=== PATIENT | female | born 1945 | race Caucasian/White ===

== ENCOUNTER 2016-11-22 08:00 | Outpatient (CLI) | payer MEDICARE, BC | END 2016-11-22 08:01 | DX: E78.5 Hyperlipidemia, unspecified (principal); R73.01 Impaired fasting glucose; E89.0 Postprocedural hypothyroidism ==

== ENCOUNTER 2017-02-17 07:09 | Outpatient (CLI) | payer MEDICARE, BC | END 2017-02-17 07:10 | disposition home or self-care (01) | DX: E89.0 Postprocedural hypothyroidism (principal) ==

== ENCOUNTER 2022-01-09 13:08 | Outpatient (CLI) | payer MEDICARE, BC | END 2022-01-09 13:09 | disposition short-term general hospital (02) | LOC: EMS 13:08 | DX: S09.90XA Unspecified injury of head, initial encounter (principal); M54.2 Cervicalgia; R41.0 Disorientation, unspecified; R26.81 Unsteadiness on feet; W17.81XA Fall down embankment (hill), initial encounter; Y92.414 Local residential or business street as the place of occurrence of the external cause | CPT/HCPCS: A0425; A0429 ==

== ENCOUNTER 2023-05-12 09:20 | Outpatient (CLI) | payer MEDICARE, BC ==
[2023-05-12 12:08] LABS: BASOPHILS % (AUTO) 0.7 %; EOSINOPHILS # (AUTO) 0.1 10^3/uL (0.0-0.7); EOSINOPHILS % (AUTO) 1.6 %; HCT - HEMATOCRIT 40.1 % (37.0-47.0); HGB - HEMOGLOBIN 12.8 g/dL (12.0-16.0); LYMPHOCYTES # (AUTO) 1.3 10^3/uL (1.5-3.5); LYMPHOCYTES % (AUTO) 29.1 %; MEAN CORPUSCULAR HEMOGLOBIN 29.8 pg (27.0-31.0); MEAN CORPUSCULAR HGB CONC 31.9 g/dL (32.0-36.0); MEAN CORPUSCULAR VOLUME 93.5 fL (81.0-99.0); MEAN PLATELET VOLUME 14.8 fL (7.9-10.8); MONOCYTES # (AUTO) 0.5 10^3/uL (0.0-1.0); MONOCYTES % (AUTO) 10.6 %; NEUTROPHILS # (AUTO) 2.5 10^3/uL (1.5-6.6); NEUTROPHILS % (AUTO) 57.8 %; PLT - PLATELET COUNT 133 10^3/uL (130-450); RED BLOOD COUNT 4.29 10^6/uL (4.20-5.40); RED CELL DISTRIBUTION WIDTH 12.5 % (12.0-15.0); WHITE BLOOD COUNT 4.4 x10^3/uL (4.8-10.8)
[2023-05-12 12:36] LABS: ALBUMIN/GLOBULIN RATIO 1.5 (1.0-2.2); ALKALINE PHOSPHATASE 68 IU/L (42-121); ALT ALANINE AMINOTRANSFERASE 16 IU/L (10-60); AST ASPARTATE AMINOTRANSFERASE 20 IU/L (10-42); BILIRUBIN,TOTAL 0.5 mg/dL (0.2-1.0); BUN - BLOOD UREA NITROGEN 16 mg/dL (6-20); CALCIUM 9.9 mg/dL (8.5-10.3); CARBON DIOXIDE - CO2 28 mmol/L (21-32); CHLORIDE 104 mmol/L (101-111); CHOL/HDL RATIO 3.7 (<4.4); CHOLESTEROL 144 mg/dL; CREATININE 0.6 mg/dL (0.6-1.3); GFR - MDRD 97 (>89); GLUCOSE 83 mg/dL (74-104); HDL CHOLESTEROL 39 mg/dL; LDL CHOLESTEROL,CALCULATED 79 mg/dL; POTASSIUM 3.5 mmol/L (3.5-4.5); SODIUM 142 mmol/L (135-145); TOTAL PROTEIN 6.6 g/dL (6.4-8.9); TRIGLYCERIDES 129 mg/dL (48-352); VLDL CHOLESTEROL 26 mg/dL
== END 2023-05-12 09:21 | disposition home or self-care (01) ==
LOC: LAB.N 09:20
PROVIDERS: ATTEND Nurse Practitioner
DX: E78.5 Hyperlipidemia, unspecified (principal); R53.83 Other fatigue; G31.09 Other frontotemporal neurocognitive disorder
CPT/HCPCS: 36415; 80053; 80061; 82607; 83721; 85025

== ENCOUNTER 2023-05-26 08:54 | Outpatient (CLI) | payer MEDICARE, BC | END 2023-05-26 23:59 | disposition short-term general hospital (02) | LOC: EMS 08:54 | DX: R07.9 Chest pain, unspecified (principal); R10.13 Epigastric pain; M54.50 Low back pain, unspecified; R00.1 Bradycardia, unspecified | CPT/HCPCS: A0425; A0429 ==

== ENCOUNTER 2023-07-12 12:13 | Outpatient (CLI) | payer MEDICARE, BC | END 2023-07-12 23:59 | disposition critical access hospital (66) | LOC: EMS 12:13 | DX: R41.82 Altered mental status, unspecified (principal); R53.1 Weakness; R63.8 Other symptoms and signs concerning food and fluid intake; N93.9 Abnormal uterine and vaginal bleeding, unspecified; N39.0 Urinary tract infection, site not specified | CPT/HCPCS: A0425; A0429 ==

== ENCOUNTER 2023-07-12 12:44 | Inpatient (IN) | payer MEDICARE, BC ==
[2023-07-12] MEDS ORDERED: SODIUM CHLORIDE 0.9% 1,000 ML IV STA (12:56)
--- NOTE | 2023-07-12 13:03 | ED Physician Documentation ---
History of Present Illness - Stated complaint Stated Complaint: FTT - Additonal information Additional information: History provided by EMS given patient's advanced dementia. 78-year-old female is brought to the emergency department for evaluation of reported shortness of air when ambulating this morning and concerns of vaginal bleeding. The patient is currently receiving cephalexin for a urinary tract infection which grew E. coli with last visit This patient has dementia and resides at home with 24-hour caregivers. She was seen in this emergency department on 07/04/2023 for concerns of constipation and abdominal pain. It sounded at the time of that visit that the patient had begun as of late to refuse most of her medications and bowel regimen though she had reported pain when having bowel movements. Caregivers had reported increasing difficulty managing her at home. Her guardian was hoping to get placement for the patient in a memory care unit but they had not yet visited her PCP to talk about this. On arrival to the emergency department the patient appears alert and is requesting her cell phone. She appears to be in no apparent distress. EMS described sinus rhythm, normal blood sugar and normal blood pressures. No fevers. Review of Systems Unable to obtain: Dementia, Other (As per EMS) PD PAST MEDICAL HISTORY - Past Medical History Cardiovascular: Hypertension Neuro: Dementia Endocrine/Autoimmune: HyPOthyroidism - Past Surgical History Past Surgical History: Yes - Present Medications Home Medications: Ambulatory Orders Medication Instructions Recorded Confirmed Bisacodyl Supp [Dulcolax Supp] 10 mg [place] DAILY PRN #20 supp 07/04/23 Levothyroxine [Synthroid] 100 mcg PO QDAC 07/04/23 07/04/23 Melatonin 3 mg PO DAILY 07/04/23 07/04/23 Senna [Senokot] 8.6 mg PO DAILY 07/04/23 07/04/23 Sertraline [Zoloft] 25 mg PO DAILY 07/04/23 07/04/23 traZODone [Desyrel] 50 mg PO HS 07/04/23 07/04/23 Potassium Chloride [Klor-Con] 20 meq PO DAILY 5 Days #5 packet 07/06/23 cephALEXin [Keflex] 500 mg PO BID #14 cap 07/06/23 - Allergies Allergies/Adverse Reactions: Allergies Allergy/AdvReac Type Severity Reaction Status Date / Time No Known Drug Allergies Allergy Verified 07/12/23 13:03 - Social History Does the pt smoke?: No Smoking Status: Never smoker Does the pt drink ETOH?: No Does the pt have substance abuse?: No - Immunizations Immunizations are current?: Yes PD ED PE EXPANDED - General General: Alert, No acute distress - Cardiac Cardiac: Regular Rate, Radial strong equal, Pedal strong equal, Cap refill < 2 sec - Respiratory Respiratory: Clear to ausultation haritha. No: Distress, Labored - Abdomen Abdomen: Normal Bowel sounds. No: Tender to palpation - Female Female : Other (I Jayne RN at bedside. Female exam reveals dark brandon urine in the diaper but no obvious bleeding. She has dark green stool which was sent for guaiac check. A very brief vaginal exam revealed no obvious vaginal bleeding) - Rectal Rectal: Farm Machine Operator present, Other (Dark green soft stool in vault.) - Derm Derm: Normal color, Warm and dry - Extremities Extremities: Normal. No: Deformity, Tenderness - Neuro Neuro: Confused, CNII-XII intact (grossly intact) - GCS Eye Opening: Spontaneous Motor: Localizes to Pain Verbal: Confused Total: 13 Results - Vitals Vitals: Vital Signs - 24 hr 07/12/23 07/12/23 07/12/23 13:00 15:02 18:05 Temperature 36.0 C L 36.5 C Heart Rate 94 72 80 Respiratory 20 15 17 Rate Blood Pressure 117/82 H 118/57 L 125/52 L O2 Saturation 99 98 100 07/12/23 19:20 Temperature Heart Rate 74 Respiratory 18 Rate Blood Pressure 118/64 O2 Saturation 100 Oxygen O2 Source Room air - Labs Labs: Microbiology 07/12/23 13:09 Occult Blood - Final Stool Laboratory Tests 07/12/23 07/12/23 07/12/23 13:09 13:53 13:53 WBC 12.4 H RBC 4.39 Hgb 13.4 Hct 41.8 MCV 95.2 MCH 30.5 MCHC 32.1 RDW 16.5 H Plt Count 231 MPV 13.4 H Neut # (Auto) 10.7 H Lymph # (Auto) 0.6 L Pitt # (Auto) 0.9 Eos # (Auto) 0.0 Baso # (Auto) 0.0 Absolute Nucleated RBC 0.00 Nucleated RBC % 0.0 Sodium 157 H* Potassium 2.7 L Chloride 115 H Carbon Dioxide 26 Anion Gap 16.0 H BUN 68 H Creatinine 1.0 Estimated GFR (MDRD) 54 L Glucose 146 H Calcium 10.0 Total Bilirubin 0.6 AST 20 ALT 16 Alkaline Phosphatase 66 Total Protein 6.8 Albumin 4.0 Globulin 2.8 Albumin/Globulin Ratio 1.4 Lipase 20 Urine Color DARK YELLOW Urine Clarity CLEAR Urine pH 5.5 Ur Specific [place] 1.020 Urine Protein 30 H Urine Glucose (UA) NEGATIVE Urine Ketones TRACE Urine Occult Blood TRACE-INTA Urine Nitrite POSITIVE H Urine Bilirubin NEGATIVE Urine Urobilinogen 0.2 (NORMAL) Ur Leukocyte Esterase SMALL H Urine RBC 0-5 Urine WBC >25 H Urine WBC Clumps PRESENT Ur Squamous Epith Cells NONE SEEN Urine Bacteria Moderate H Ur Microscopic Review INDICATED Urine Culture Comments INDICATED 07/12/23 17:05 WBC RBC Hgb Hct MCV MCH MCHC RDW Plt Count MPV Neut # (Auto) Lymph # (Auto) Pitt # (Auto) Eos # (Auto) Baso # (Auto) Absolute Nucleated RBC Nucleated RBC % Sodium 157 H* Potassium 3.2 L Chloride 118 H Carbon Dioxide 25 Anion Gap 14.0 H BUN 63 H Creatinine 0.9 Estimated GFR (MDRD) 61 L Glucose 120 H Calcium 9.2 Total Bilirubin AST ALT Alkaline Phosphatase Total Protein Albumin Globulin Albumin/Globulin Ratio Lipase Urine Color Urine Clarity Urine pH Ur Specific [place] Urine Protein Urine Glucose (UA) Urine Ketones Urine Occult Blood Urine Nitrite Urine Bilirubin Urine Urobilinogen Ur Leukocyte Esterase Urine RBC Urine WBC Urine WBC Clumps Ur Squamous Epith Cells Urine Bacteria Ur Microscopic Review Urine Culture Comments PD Medical Decision Making - ED course Complexity details: reviewed results, re-evaluated patient, other ([place] Court appointed legal guardian) ED course: 78-year-old female who has a history of dementia is brought to back to the emergency department for evaluation of increasing weakness, refusal to eat or take medications and concerns that she has vaginal bleeding. Was seen several days ago for constipation and lower abdominal pain. At that time found to have a urinary tract infection E. coli pansensitive. Was started on Keflex. Since discharge she has had increasing refusal of foods and medications. Her caregivers feel that she is more altered and nonsensical in her speech. On presentation to the emergency department she is alert. She is confused at baseline but has no obvious focal deficits. Her vital signs show no fevers, tachycardia or hypotension. The exam at the bedside revealed a diaper with dark brandon urine. There was no evidence of vaginal bleeding. She did have some melenic appearing stool which was ultimately guaiac positive. We did obtain CBC, electrolytes and a urinalysis. Her UA is consistent with acute cystitis nitrite positive greater than 25 WBCs and moderate bacteria. For this she was administered a gram of ceftriaxone IV. CBC showed mild leukocytosis white count of 12,000. Normal hemoglobin. Electrolytes show f airly elevated sodium of 157 and potassium of 2.7. BUN is 68 and creatinine is 1. Initially the patient was administered a liter of IV fluids. However with a sodium of 157 we instituted a saline infusion half-normal at 90 mL/h. Her BMP will be rechecked. Guaiac positive melena likely indicates an upper GI bleed. IV Protonix was administered. Given hemodynamic stability I do not feel that an EGD is an urgent need at this time. At this time the patient does warrant admission/observation admission to the hospital for management of her dehydration and electrolyte abnormalities. No bed is available. Subsequently I reached out to [facility] her court appointed legal guardian who can be reached at [phone]. She indicated to me that she wished for the patient to be placed in a memory care facility. I discussed with her that the emergency department did not have the capability of admitting patients to memory care facilities and this should be arranged through her primary doctors. She told me she felt it was not safe for the patient to be discharged back home. However I explained to her that she does have 24-hour caregiver support in place which would in fact make her safe for discharge. 1919: I have spoken with nighttime telehospitalist Dr. Gracia and given the clinical history. He will admit the patient to the hospital for further management of her dehydration, acute cystitis and dementia Departure - Departure Disposition: 66 [facility] DC/Xfer Clinical Impression: Dehydration, Hypernatremia, Hypokalemia Acute cystitis Qualifiers: Hematuria presence: without hematuria Qualified Code(s): N30.00 - Acute cyst itis without hematuria GIB (gastrointestinal bleeding) Qualifiers: GI bleed type/associated pathology: unspecified gastrointestinal hemorrhage type Qualified Code(s): K92.2 - Gastrointestinal hemorrhage, unspecified Dementia Qualifiers: Dementia type: unspecified type Dementia severity: severe Dementia behavioral or psychological symptom: unspecified whether behavioral, psychotic, or mood disturbance or anxiety Qualified Code(s): F03.C0 - Unspecified dementia, severe, without behavioral disturbance, psychotic disturbance, mood disturbance, and anxiety
[2023-07-12 13:38] LABS: GLUCOSE, URINE (UA) NEGATIVE (NEGATIVE); KETONES,URINE (UA) TRACE mg/dL (NEGATIVE); LEUKOCYTE ESTERASE, URINE SMALL (NEGATIVE); NITRITE,URINE POSITIVE (NEGATIVE); OCCULT BLOOD,URINE TRACE-INTA (NEGATIVE); PH,URINE 5.5 PH (5.0-7.5); PROTEIN,URINE 30 mg/dL (NEGATIVE); UROBILINOGEN,URINE 0.2 (NORMAL) E.U./dL (NORMAL)
--- NOTE | 2023-07-12 13:41 | XRAY Report ---
PROCEDURE: Chest 1 View X-Ray INDICATIONS: chest pain TECHNIQUE: One view of the chest was acquired. COMPARISON: None. FINDINGS: Surgical changes and devices: None. Lungs and pleura: No pleural effusions or pneumothorax. Lungs are clear. Mediastinum: Mediastinal contours appear normal. Heart size is normal. Bones and chest wall: No suspicious bony lesions. Overlying soft tissues appear unremarkable. IMPRESSION: No acute cardiopulmonary process. Reviewed by: Dk Ling on 07/12/2023 1:40 PM PDT Approved by: Dk Ling on 07/12/2023 1:40 PM PDT Station ID: [id number]
[2023-07-12 13:44] LABS: CLARITY,URINE CLEAR (CLEAR)
[2023-07-12 13:52] LABS: BILIRUBIN,URINE NEGATIVE (NEGATIVE); ICTOTEST,URINE NEGATIVE
[2023-07-12 14:08] LABS: WBC CLUMPS,URINE PRESENT; WBC,URINE >25 /HPF (0-5)
[2023-07-12 14:09] LABS: BACTERIA,URINE Moderate /HPF (None Seen); RBC,URINE 0-5 /HPF (0-5); SQUAMOUS EPITHELIAL CELL,UR NONE SEEN (<= Few)
[2023-07-12 14:24] LABS: BASOPHILS % (AUTO) 0.3 %; HCT - HEMATOCRIT 41.8 % (37.0-47.0); HGB - HEMOGLOBIN 13.4 g/dL (12.0-16.0); LYMPHOCYTES # (AUTO) 0.6 10^3/uL (1.5-3.5); MEAN CORPUSCULAR HEMOGLOBIN 30.5 pg (27.0-31.0); MEAN CORPUSCULAR HGB CONC 32.1 g/dL (32.0-36.0); MEAN CORPUSCULAR VOLUME 95.2 fL (81.0-99.0); MEAN PLATELET VOLUME 13.4 fL (7.9-10.8); MONOCYTES # (AUTO) 0.9 10^3/uL (0.0-1.0); MONOCYTES % (AUTO) 7.1 %; NEUTROPHILS # (AUTO) 10.7 10^3/uL (1.5-6.6); NEUTROPHILS % (AUTO) 86.1 %; PLT - PLATELET COUNT 231 10^3/uL (130-450); RED BLOOD COUNT 4.39 10^6/uL (4.20-5.40); RED CELL DISTRIBUTION WIDTH 16.5 % (12.0-15.0); WHITE BLOOD COUNT 12.4 x10^3/uL (4.8-10.8)
[2023-07-12 14:43] LABS: ALBUMIN/GLOBULIN RATIO 1.4 (1.0-2.2); BILIRUBIN,TOTAL 0.6 mg/dL (0.2-1.0); POTASSIUM 2.7 mmol/L (3.5-4.5); TOTAL PROTEIN 6.8 g/dL (6.4-8.9)
[2023-07-12] MEDS: SODIUM CHLORIDE 0.45% 1,000 ML IV SCH ×2 (15:47→23:54)
[2023-07-12] MEDS ORDERED: cefTRIAXone 1 GM VIAL IVP STA (16:34)
[2023-07-12] MEDS: POTASSIUM CHLORIDE 20 MEQ/15 ML UDC PO STA ×2 (16:35→16:47)
[2023-07-12 17:39] LABS: CALCIUM 9.2 mg/dL (8.5-10.3); CREATININE 0.9 mg/dL (0.6-1.3); POTASSIUM 3.2 mmol/L (3.5-4.5)
[2023-07-12] MEDS: POTASSIUM CHLOR 10 MEQ/100 ML 10 MEQ/100 ML BAG IV SCH ×4 (18:24→23:00)
[2023-07-12] MEDS ORDERED: PANTOPRAZOLE 40 MG VIAL IVP STA (19:22)
[2023-07-12] MEDS ORDERED: ONDANSETRON 4 MG/2 ML VIAL IVP PRN (19:24)
--- NOTE | 2023-07-12 20:05 | HISTORY & PHYSICAL EXAMINATION ---
Chief Complaint - Chief Complaint Chief Complaint: Not eating or drinking History of Present Illness - History of Present Illness HPI Comment/Other: 78 y old female with PMH dementia, hypothyroidism BIBA due to not eating or drinking for last few days. Most is history is from the caregiver. As per caregiver, pt was not taking her meds or eating or drinking for last few days. They noticed blood per rectum while cleaning her yesterday and gain this mo rning.. On presentaion, pt was afberile Labs showed WBC 12.3, NA 159, hypokalemia, UTI, As per Isabel Ornelas, pt was guiaiac positive In ER, pt was given Normal saline, IV protonix and abx Pt is admitted due to GI bleeding, hypernatremia, dehydartion, hypokalemia and uti History - Past Medical History Cardiovascular: reports: Hypertension Neuro: reports: Dementia Endocrine/Autoimmune: reports: HyPOthyroidism MRSA Hx?: No Meds/Allgy - Home Medications Home Medications: Ambulatory Orders Medication Instructions Recorded Confirmed Bisacodyl Supp [Dulcolax Supp] 10 mg [place] DAILY PRN #20 supp 07/04/23 Levothyroxine [Synthroid] 100 mcg PO QDAC 07/04/23 07/04/23 Melatonin 3 mg PO DAILY 07/04/23 07/04/23 Senna [Senokot] 8.6 mg PO DAILY 07/04/23 07/04/23 Sertraline [Zoloft] 25 mg PO DAILY 07/04/23 07/04/23 traZODone [Desyrel] 50 mg PO HS 07/04/23 07/04/23 Potassium Chloride [Klor-Con] 20 meq PO DAILY 5 Days #5 packet 07/06/23 cephALEXin [Keflex] 500 mg PO BID #14 cap 07/06/23 - Allergies Allergies/Adverse Reactions: Allergies Allergy/AdvReac Type Severity Reaction Status Date / Time No Known Drug Allergies Allergy Verified 07/12/23 13:03 Review of Systems - Other Findings Other Findings: unable to obtain due to dementia Exam - Vital Signs Vital Signs: Vital Signs x48h Temp Pulse Resp BP Pulse Ox 07/12/23 19:20 74 18 118/64 100 07/12/23 18:05 80 17 125/52 L 100 07/12/23 15:02 36.5 C 72 15 118/57 L 98 07/12/23 13:00 36.0 C L 94 20 117/82 H 99 - Physical Exam General Appearance: positive: Lethargic (sleepy), Other ENT: positive: ENT inspection nml Neck: positive: Nml inspection Respiratory: positive: Breath sounds nml Cardiovascular: positive: Regular rate & rhythm Abdomen: positive: Non-tender, Nml bowel sounds Skin: positive: No rash Neurologic/Psychiatric: positive: Disoriented to place, Disoriented to time Conclusion/Plan - Lab Results Fish Bones: 07/12/23 13:53 07/12/23 17:05 - Other Other Results/Comments: A: GI bleeding Hypernatremia Dehydration, Hypokalemia UTI Dementia Plan: Admit in ICU NPO Start protonix gtt Monitor H/H q6h. Transfuse PRBC if Hb less than 7.0 As per Isabel Ornelas, she will consult general surgery for EGD and colonoscopy Start D5W @ 75 cc/h monitor serum sodium q6h neuro checks q4h correction of sodium should not exceed more than 0.5 meq per hour Replace k and monitor Follow cx Start iv rocephin Supportive care DVT prophylaxic: SCD Full code pt is admitted as inpatient as more than 2 midnight stay is expected
[2023-07-12] MEDS ORDERED: PANTOPRAZOLE 40 MG VIAL ONE (20:31)
[2023-07-12] MEDS: DEXTROSE 5% 1,000 ML IV SCH (21:35)
[2023-07-12] MEDS: PANTOPRAZOLE 80 MG in SODIUM CHLORIDE 0.9% 100ML 100 ML IV SCH (21:42)
[2023-07-12 23:25] LABS: BASOPHILS % (AUTO) 0.2 %; HCT - HEMATOCRIT 38.5 % (37.0-47.0); HGB - HEMOGLOBIN 11.9 g/dL (12.0-16.0); LYMPHOCYTES % (AUTO) 7.2 %; MEAN CORPUSCULAR HEMOGLOBIN 29.9 pg (27.0-31.0); MEAN CORPUSCULAR HGB CONC 30.9 g/dL (32.0-36.0); MEAN CORPUSCULAR VOLUME 96.7 fL (81.0-99.0); MEAN PLATELET VOLUME 12.7 fL (7.9-10.8); MONOCYTES # (AUTO) 1.3 10^3/uL (0.0-1.0); MONOCYTES % (AUTO) 9.7 %; NEUTROPHILS # (AUTO) 10.6 10^3/uL (1.5-6.6); NEUTROPHILS % (AUTO) 80.3 %; PLT - PLATELET COUNT 193 10^3/uL (130-450); RED BLOOD COUNT 3.98 10^6/uL (4.20-5.40); RED CELL DISTRIBUTION WIDTH 16.7 % (12.0-15.0); WHITE BLOOD COUNT 13.3 x10^3/uL (4.8-10.8)
[2023-07-12] MEDS: SODIUM CHLORIDE FLUSH 0.9% 10 ML SYRINGE IVP SCH (23:53)
[2023-07-13 05:07] LABS: BASOPHILS % (AUTO) 0.3 %; EOSINOPHILS % (AUTO) 0.2 %; HGB - HEMOGLOBIN 10.9 g/dL (12.0-16.0); LYMPHOCYTES # (AUTO) 1.1 10^3/uL (1.5-3.5); LYMPHOCYTES % (AUTO) 10.3 %; MEAN CORPUSCULAR HEMOGLOBIN 30.6 pg (27.0-31.0); MEAN CORPUSCULAR HGB CONC 32.1 g/dL (32.0-36.0); MEAN CORPUSCULAR VOLUME 95.5 fL (81.0-99.0); MEAN PLATELET VOLUME 13.6 fL (7.9-10.8); MONOCYTES % (AUTO) 9.3 %; NEUTROPHILS # (AUTO) 8.2 10^3/uL (1.5-6.6); NEUTROPHILS % (AUTO) 77.8 %; PLT - PLATELET COUNT 171 10^3/uL (130-450); RED BLOOD COUNT 3.56 10^6/uL (4.20-5.40); RED CELL DISTRIBUTION WIDTH 16.7 % (12.0-15.0); WHITE BLOOD COUNT 10.6 x10^3/uL (4.8-10.8)
[2023-07-13 05:15] LABS: CALCIUM, IONIZED 1.11 mmol/L (1.15-1.33); VBG PH 7.465 (7.31-7.41)
[2023-07-13 05:24] LABS: CALCIUM 9.1 mg/dL (8.5-10.3); CREATININE 0.8 mg/dL (0.6-1.3); MAGNESIUM 2.1 mg/dL (1.7-2.3); PHOSPHORUS 1.9 mg/dL (2.5-5.0)
--- NOTE | 2023-07-13 06:54 | CONSULTATION NOTE ---
Surgery Consult - Admit Date Hospital Admission Date: 07/12/23 - Home Meds/Allergies Home Medications: Patient History Medication Instructions Recorded Confirmed Levothyroxine [Synthroid] 100 mcg PO QDAC 07/04/23 07/04/23 Melatonin 3 mg PO DAILY 07/04/23 07/04/23 Senna [Senokot] 8.6 mg PO DAILY 07/04/23 07/04/23 Sertraline [Zoloft] 25 mg PO DAILY 07/04/23 07/04/23 traZODone [Desyrel] 50 mg PO HS 07/04/23 07/04/23 Allergies/Adverse Reactions: Allergies Allergy/AdvReac Type Severity Reaction Status Date / Time No Known Drug Allergies Allergy Verified 07/12/23 13:03 - Vital Signs Vital Signs: Last Vital Signs Temp 97.5 F L 07/13/23 04:00 Pulse 68 07/13/23 04:00 Resp 16 07/13/23 04:00 BP 119/51 L 07/13/23 04:00 Pulse Ox 98 07/13/23 04:00 O2 Flow Rate Intake & Output: Intake & Output 07/10/23 07/11/23 07/12/23 07/13/23 23:59 23:59 23:59 23:59 Intake Total 1846 100 Output Total 750 Balance 1846 -650 - Lab Results Result Diagrams: 07/13/23 04:45 07/13/23 04:45 - Consultation Note Consultation Note: General Surgery Consultation Note Assessment: 1) Melena - probably UGI source. Doesn't seem like an active bleed at this time...but right sided colon tumors can also present with dark stools. 2) Blood loss anemia - no transfusion required yet 3) Dehydration 4) Hypernatremia - slight improvement since admission 5) Hypokalemia - Improved since admission 6) Dementia 7) Failure to thrive 8) UTI Recommendation: 1) EGD can be offered if deemed necessary to modify her current treatment. I would continue the PPI regardless. A colonoscopic examination might also be p rudent because right sided colon tumors can cause melena. I think we would need guidance from her guardian regarding how aggressive they want us to be given her current medical issues before offering either procedure. 2) Surgery will follow <><><><><><><><><><> Reason for Consultation Melena, anemia HPI Caregivers have noted black rectal discharge the last two days. No diarrhea. Patient without complaint of abdominal or anal pain but not eating well and seems weaker. Not on NSAIDs. Past Medical History HTN, Dementia, Hypothyroid Past Surgical History None Current Medications See "Medication" section Allergies NKDA ROS Pertinent positives Unable to obtain All other reviewed systems negative Physical Examination Vital Signs: T 97.5, P 68, BP 119/51, RR 16 BMI: 24 GENERAL APPEARANCE: Frail, elderly female PSYCHIATRIC: Awake, aware of my presence, unable to understand or participate in cogent conversation LUNGS: Clear to auscultation without wheezing; No use of accessory muscles to breathe CARDIOVASCULAR: Heart-NSR without murmurs; Palpable carotid arteries - no bruits; ABD: Soft, not distended, no tenderness, active BS EXTREMITIES: No clubbing, cyanosis, infections SKIN: Anicteric Labs Na 157 -> 152 K 2.7 -> 3.0 Hgb 13.4 -> 10.9 Antibiotics: Ceftriaxone Imaging CXR - WNL Elder Thomson MD, FACS General Surgery Service [phone]
[2023-07-13] MEDS: PANTOPRAZOLE 80 MG in SODIUM CHLORIDE 0.9% 100ML 100 ML IV SCH ×2 (08:15→19:09)
[2023-07-13] MEDS: cefTRIAXone 1 GM in SODIUM CHLORIDE 0.9% MINIBAG 100 ML IV SCH (08:22)
[2023-07-13 09:01] LABS: BASOPHILS % (AUTO) 0.3 %; EOSINOPHILS % (AUTO) 0.3 %; HCT - HEMATOCRIT 32.3 % (37.0-47.0); HGB - HEMOGLOBIN 10.4 g/dL (12.0-16.0); LYMPHOCYTES # (AUTO) 0.9 10^3/uL (1.5-3.5); LYMPHOCYTES % (AUTO) 9.2 %; MEAN CORPUSCULAR HEMOGLOBIN 30.4 pg (27.0-31.0); MEAN CORPUSCULAR HGB CONC 32.2 g/dL (32.0-36.0); MEAN CORPUSCULAR VOLUME 94.4 fL (81.0-99.0); MEAN PLATELET VOLUME 13.1 fL (7.9-10.8); MONOCYTES # (AUTO) 0.9 10^3/uL (0.0-1.0); MONOCYTES % (AUTO) 8.5 %; NEUTROPHILS # (AUTO) 7.9 10^3/uL (1.5-6.6); NEUTROPHILS % (AUTO) 77.3 %; NRBC ABSOLUTE COUNT (AUTO) 0.03 x10^3/uL; NUCLEATED RED BLOOD CELLS AUTO 0.3 /100WBC; PLT - PLATELET COUNT 174 10^3/uL (130-450); RED BLOOD COUNT 3.42 10^6/uL (4.20-5.40); RED CELL DISTRIBUTION WIDTH 16.8 % (12.0-15.0); WHITE BLOOD COUNT 10.2 x10^3/uL (4.8-10.8)
[2023-07-13 09:13] LABS: CREATININE 0.8 mg/dL (0.6-1.3); POTASSIUM 2.8 mmol/L (3.5-4.5)
--- NOTE | 2023-07-13 09:14 | PROVIDER PROGRESS NOTE ---
Subjective - Subjective Pt reports feeling: No change (The caregiver she has at her home is at bedside, and says that the patient is still more lethargic and less communicative than she normally is at home, except for the last 3 days when these changes began.) Objective - Vital Signs/Intake & Output Vital Signs: Vital Signs Pulse Resp BP Pulse Ox 07/13/23 08:00 66 21 113/45 L 99 Intake & Output: Intake & Output 07/10/23 07/11/23 07/12/23 07/13/23 23:59 23:59 23:59 23:59 Intake Total 1846 200 Output Total 850 Balance 1846 -650 - Objective General Appearance: positive: No acute distress, Lethargic, Other (Frail appearing) Eyes Bilateral: positive: EOMI, Other (Sunken eyes) ENT: positive: Dry mucous membranes Neck: positive: Nml inspection, No JVD Respiratory: positive: No respiratory distress, Breath sounds nml Cardiovascular: positive: Regular rate & rhythm, No murmur Abdomen: positive: Non-tender, No distention Skin: positive: Warm, Dry, Other ((+) skin tenting) Extremities: positive: Non-tender, No pedal edema Neurologic/Psychiatric: positive: Oriented x3, Motor nml, Other (Minimally communicative.) - Lab Results Fish Bones: 07/13/23 13:20 07/13/23 13:20 Other Labs: Lab Results x24hrs 07/13/23 07/13/23 07/13/23 Range/Units 08:48 04:46 04:45 WBC 10.2 (4.8-10.8) x10^3/uL RBC 3.42 L (4.20-5.40) 10^6/uL Hgb 10.4 L (12.0-16.0) g/dL Hct 32.3 L (37.0-47.0) % MCV 94.4 (81.0-99.0) fL MCH 30.4 (27.0-31.0) pg MCHC 32.2 (32.0-36.0) g/dL RDW 16.8 H (12.0-15.0) % Plt Count 174 (130-450) 10^3/uL MPV 13.1 H (7.9-10.8) fL Neut # (Auto) 7.9 H (1.5-6.6) 10^3/uL Lymph # (Auto) 0.9 L (1.5-3.5) 10^3/uL [place] # (Auto) 0.9 (0.0-1.0) 10^3/uL Eos # (Auto) 0.0 (0.0-0.7) 10^3/uL Baso # (Auto) 0.0 (0.0-0.1) 10^3/uL Absolute Nucleated RBC 0.03 x10^3/uL Nucleated RBC % 0.3 /100WBC VBG pH 7.465 H (7.31-7.41) Ionized Calcium 1.11 L (1.15-1.33) mmol/L Sodium (135-145) mmol/L Potassium (3.5-4.5) mmol/L Chloride (101-111) mmol/L Carbon Dioxide (21-32) mmol/L Anion Gap (6-13) BUN (6-20) mg/dL Creatinine (0.6-1.3) mg/dL Estimated GFR (MDRD) (>89) Glucose (74-104) mg/dL Calcium (8.5-10.3) mg/dL Phosphorus (2.5-5.0) mg/dL Magnesium (1.7-2.3) mg/dL Total Bilirubin (0.2-1.0) mg/dL AST (10-42) IU/L ALT (10-60) IU/L Alkaline Phosphatase (42-121) IU/L Total Protein (6.4-8.9) g/dL Albumin (3.2-5.5) g/dL Globulin (2.1-4.2) g/dL Albumin/Globulin Ratio (1.0-2.2) Lipase (11-82) U/L Urine Color Urine Clarity (CLEAR) Urine pH (5.0-7.5) PH Ur Specific [place] (1.002-1.030) Urine Protein (NEGATIVE) mg/dL Urine Glucose (UA) (NEGATIVE) mg/dL Urine Ketones (NEGATIVE) mg/dL Urine Occult Blood (NEGATIVE) Urine Nitrite (NEGATIVE) Urine Bilirubin (NEGATIVE) Urine Urobilinogen (NORMAL) E.U./dL Ur Leukocyte Esterase (NEGATIVE) Urine RBC (0-5) /HPF Urine WBC (0-5) /HPF Urine WBC Clumps Ur Squamous Epith Cells (<= Few) Urine Bacteria (None Seen) /HPF Ur Microscopic Review Urine Culture Comments Nasal Screen MRSA (PCR) NEGATIVE (NEGATIVE) Blood Type Blood Type Recheck Antibody Screen 07/13/23 07/13/23 07/12/23 Range/Units 04:45 04:45 23:20 WBC 10.6 13.3 H (4.8-10.8) x10^3/uL RBC 3.56 L 3.98 L (4.20-5.40) 10^6/uL Hgb 10.9 L 11.9 L (12.0-16.0) g/dL Hct 34.0 L 38.5 (37.0-47.0) % MCV 95.5 96.7 (81.0-99.0) fL MCH 30.6 29.9 (27.0-31.0) pg MCHC 32.1 30.9 L (32.0-36.0) g/dL RDW 16.7 H 16.7 H (12.0-15.0) % Plt Count 171 193 (130-450) 10^3/uL MPV 13.6 H 12.7 H (7.9-10.8) fL Neut # (Auto) 8.2 H 10.6 H (1.5-6.6) 10^3/uL Lymph # (Auto) 1.1 L 1.0 L (1.5-3.5) 10^3/uL [place] # (Auto) 1.0 1.3 H (0.0-1.0) 10^3/uL Eos # (Auto) 0.0 0.0 (0.0-0.7) 10^3/uL Baso # (Auto) 0.0 0.0 (0.0-0.1) 10^3/uL Absolute Nucleated RBC 0.00 0.00 x10^3/uL Nucleated RBC % 0.0 0.0 /100WBC VBG pH (7.31-7.41) Ionized Calcium (1.15-1.33) mmol/L Sodium 152 H (135-145) mmol/L Potassium 3.0 L (3.5-4.5) mmol/L Chloride 118 H (101-111) mmol/L Carbon Dioxide 27 (21-32) mmol/L Anion Gap 7.0 (6-13) BUN 50 H (6-20) mg/dL Creatinine 0.8 (0.6-1.3) mg/dL Estimated GFR (MDRD) 70 L (>89) Glucose 127 H (74-104) mg/dL Calcium 9.1 (8.5-10.3) mg/dL Phosphorus 1.9 L (2.5-5.0) mg/dL Magnesium 2.1 (1.7-2.3) mg/dL Total Bilirubin (0.2-1.0) mg/dL AST (10-42) IU/L ALT (10-60) IU/L Alkaline Phosphatase (42-121) IU/L Total Protein (6.4-8.9) g/dL Albumin (3.2-5.5) g/dL Globulin (2.1-4.2) g/dL Albumin/Globulin Ratio (1.0-2.2) Lipase (11-82) U/L Urine Color Urine Clarity (CLEAR) Urine pH (5.0-7.5) PH Ur Specific [place] (1.002-1.030) Urine Protein (NEGATIVE) mg/dL Urine Glucose (UA) (NEGATIVE) mg/dL Urine Ketones (NEGATIVE) mg/dL Urine Occult Blood (NEGATIVE) Urine Nitrite (NEGATIVE) Urine Bilirubin (NEGATIVE) Urine Urobilinogen (NORMAL) E.U./dL Ur Leukocyte Esterase (NEGATIVE) Urine RBC (0-5) /HPF Urine WBC (0-5) /HPF Urine WBC Clumps Ur Squamous Epith Cells (<= Few) Urine Bacteria (None Seen) /HPF Ur Microscopic Review Urine Culture Comments Nasal Screen MRSA (PCR) (NEGATIVE) Blood Type Blood Type Recheck Antibody Screen 07/12/23 07/12/23 07/12/23 Range/Units 23:20 20:07 17:05 WBC (4.8-10.8) x10^3/uL RBC (4.20-5.40) 10^6/uL Hgb (12.0-16.0) g/dL Hct (37.0-47.0) % MCV (81.0-99.0) fL MCH (27.0-31.0) pg MCHC (32.0-36.0) g/dL RDW (12.0-15.0) % Plt Count (130-450) 10^3/uL MPV (7.9-10.8) fL Neut # (Auto) (1.5-6.6) 10^3/uL Lymph # (Auto) (1.5-3.5) 10^3/uL [place] # (Auto) (0.0-1.0) 10^3/uL Eos # (Auto) (0.0-0.7) 10^3/uL Baso # (Auto) (0.0-0.1) 10^3/uL Absolute Nucleated RBC x10^3/uL Nucleated RBC % /100WBC VBG pH (7.31-7.41) Ionized Calcium (1.15-1.33) mmol/L Sodium 156 H* 157 H* (135-145) mmol/L Potassium 3.2 L (3.5-4.5) mmol/L Chloride 118 H (101-111) mmol/L Carbon Dioxide 25 (21-32) mmol/L Anion Gap 14.0 H (6-13) BUN 63 H (6-20) mg/dL Creatinine 0.9 (0.6-1.3) mg/dL Estimated GFR (MDRD) 61 L (>89) Glucose 120 H (74-104) mg/dL Calcium 9.2 (8.5-10.3) mg/dL Phosphorus (2.5-5.0) mg/dL Magnesium (1.7-2.3) mg/dL Total Bilirubin (0.2-1.0) mg/dL AST (10-42) IU/L ALT (10-60) IU/L Alkaline Phosphatase (42-121) IU/L Total Protein (6.4-8.9) g/dL Albumin (3.2-5.5) g/dL Globulin (2.1-4.2) g/dL Albumin/Globulin Ratio (1.0-2.2) Lipase (11-82) U/L Urine Color Urine Clarity (CLEAR) Urine pH (5.0-7.5) PH Ur Specific [place] (1.002-1.030) Urine Protein (NEGATIVE) mg/dL Urine Glucose (UA) (NEGATIVE) mg/dL Urine Ketones (NEGATIVE) mg/dL Urine Occult Blood (NEGATIVE) Urine Nitrite (NEGATIVE) Urine Bilirubin (NEGATIVE) Urine Urobilinogen (NORMAL) E.U./dL Ur Leukocyte Esterase (NEGATIVE) Urine RBC (0-5) /HPF Urine WBC (0-5) /HPF Urine WBC Clumps Ur Squamous Epith Cells (<= Few) Urine Bacteria (None Seen) /HPF Ur Microscopic Review Urine Culture Comments Nasal Screen MRSA (PCR) (NEGATIVE) Blood Type A POSITIVE Blood Type Recheck Antibody Screen NEGATIVE 07/12/23 07/12/23 07/12/23 Range/Units 13:53 13:53 13:53 WBC 12.4 H (4.8-10.8) x10^3/uL RBC 4.39 (4.20-5.40) 10^6/uL Hgb 13.4 (12.0-16.0) g/dL Hct 41.8 (37.0-47.0) % MCV 95.2 (81.0-99.0) fL MCH 30.5 (27.0-31.0) pg MCHC 32.1 (32.0-36.0) g/dL RDW 16.5 H (12.0-15.0) % Plt Count 231 (130-450) 10^3/uL MPV 13.4 H (7.9-10.8) fL Neut # (Auto) 10.7 H (1.5-6.6) 10^3/uL Lymph # (Auto) 0.6 L (1.5-3.5) 10^3/uL [place] # (Auto) 0.9 (0.0-1.0) 10^3/uL Eos # (Auto) 0.0 (0.0-0.7) 10^3/uL Baso # (Auto) 0.0 (0.0-0.1) 10^3/uL Absolute Nucleated RBC 0.00 x10^3/uL Nucleated RBC % 0.0 /100WBC VBG pH (7.31-7.41) Ionized Calcium (1.15-1.33) mmol/L Sodium 157 H* (135-145) mmol/L Potassium 2.7 L (3.5-4.5) mmol/L Chloride 115 H (101-111) mmol/L Carbon Dioxide 26 (21-32) mmol/L Anion Gap 16.0 H (6-13) BUN 68 H (6-20) mg/dL Creatinine 1.0 (0.6-1.3) mg/dL Estimated GFR (MDRD) 54 L (>89) Glucose 146 H (74-104) mg/dL Calcium 10.0 (8.5-10.3) mg/dL Phosphorus (2.5-5.0) mg/dL Magnesium (1.7-2.3) mg/dL Total Bilirubin 0.6 (0.2-1.0) mg/dL AST 20 (10-42) IU/L ALT 16 (10-60) IU/L Alkaline Phosphatase 66 (42-121) IU/L Total Protein 6.8 (6.4-8.9) g/dL Albumin 4.0 (3.2-5.5) g/dL Globulin 2.8 (2.1-4.2) g/dL Albumin/Globulin Ratio 1.4 (1.0-2.2) Lipase 20 (11-82) U/L Urine Color Urine Clarity (CLEAR) Urine pH (5.0-7.5) PH Ur Specific [place] (1.002-1.030) Urine Protein (NEGATIVE) mg/dL Urine Glucose (UA) (NEGATIVE) mg/dL Urine Ketones (NEGATIVE) mg/dL Urine Occult Blood (NEGATIVE) Urine Nitrite (NEGATIVE) Urine Bilirubin (NEGATIVE) Urine Urobilinogen (NORMAL) E.U./dL Ur Leukocyte Esterase (NEGATIVE) Urine RBC (0-5) /HPF Urine WBC (0-5) /HPF Urine WBC Clumps Ur Squamous Epith Cells (<= Few) Urine Bacteria (None Seen) /HPF Ur Microscopic Review Urine Culture Comments Nasal Screen MRSA (PCR) (NEGATIVE) Blood Type Blood Type Recheck A POSITIVE Antibody Screen 07/12/23 Range/Units 13:09 WBC (4.8-10.8) x10^3/uL RBC (4.20-5.40) 10^6/uL Hgb (12.0-16.0) g/dL Hct (37.0-47.0) % MCV (81.0-99.0) fL MCH (27.0-31.0) pg MCHC (32.0-36.0) g/dL RDW (12.0-15.0) % Plt Count (130-450) 10^3/uL MPV (7.9-10.8) fL Neut # (Auto) (1.5-6.6) 10^3/uL Lymph # (Auto) (1.5-3.5) 10^3/uL [place] # (Auto) (0.0-1.0) 10^3/uL Eos # (Auto) (0.0-0.7) 10^3/uL Baso # (Auto) (0.0-0.1) 10^3/uL Absolute Nucleated RBC x10^3/uL Nucleated RBC % /100WBC VBG pH (7.31-7.41) Ionized Calcium (1.15-1.33) mmol/L Sodium (135-145) mmol/L Potassium (3.5-4.5) mmol/L Chloride (101-111) mmol/L Carbon Dioxide (21-32) mmol/L Anion Gap (6-13) BUN (6-20) mg/dL Creatinine (0.6-1.3) mg/dL Estimated GFR (MDRD) (>89) Glucose (74-104) mg/dL Calcium (8.5-10.3) mg/dL Phosphorus (2.5-5.0) mg/dL Magnesium (1.7-2.3) mg/dL Total Bilirubin (0.2-1.0) mg/dL AST (10-42) IU/L ALT (10-60) IU/L Alkaline Phosphatase (42-121) IU/L Total Protein (6.4-8.9) g/dL Albumin (3.2-5.5) g/dL Globulin (2.1-4.2) g/dL Albumin/Globulin Ratio (1.0-2.2) Lipase (11-82) U/L Urine Color DARK YELLOW Urine Clarity CLEAR (CLEAR) Urine pH 5.5 (5.0-7.5) PH Ur Specific [place] 1.020 (1.002-1.030) Urine Protein 30 H (NEGATIVE) mg/dL Urine Glucose (UA) NEGATIVE (NEGATIVE) mg/dL Urine Ketones TRACE (NEGATIVE) mg/dL Urine Occult Blood TRACE-INTA (NEGATIVE) Urine Nitrite POSITIVE H (NEGATIVE) Urine Bilirubin NEGATIVE (NEGATIVE) Urine Urobilinogen 0.2 (NORMAL) (NORMAL) E.U./dL Ur Leukocyte Esterase SMALL H (NEGATIVE) Urine RBC 0-5 (0-5) /HPF Urine WBC >25 H (0-5) /HPF Urine WBC Clumps PRESENT Ur Squamous Epith Cells NONE SEEN (<= Few) Urine Bacteria Moderate H (None Seen) /HPF Ur Microscopic Review INDICATED Urine Culture Comments INDICATED Nasal Screen MRSA (PCR) (NEGATIVE) Blood Type Blood Type Recheck Antibody Screen Assessment/Plan - Problem List (1) GIB (gastrointestinal bleeding) Impression: Record indicates that patient had black stools for 2 days then was found to have BR BPR. Hemoglobin is greater than 10 but she was also very dehydrated at presentation Guaiac of stool was positive in ED Plan: Continue with Protonix but will change the Protonix drip to IV twice daily dosing Appreciate general surgery input I will start her on a clear liquid diet I will try to reach the DPOA to discuss how aggressive management will be going forward>> I spoke to Faviola and no endoscopy is planned. I updated Dr Thomson. (2) Hypernatremia Due to dehydration from not taking p.o. food or liquids for 3 days Patient was started on D5W, her sodium has decreased from 157 yesterday to 151 t sneha (all labs were reviewed). Plan: Follow serum sodium every 8 hours Goal is to improve sodium 6 to 8 mEq over the next 24 hours I will start her on a clear liquid diet (3) SONJA BUN/creatinine 63/0.9 at presentation>> 47/0.8 today. Plan: Continue with free water IV hydration, using D5W Begin liquid diet Avoid nephrotoxins Follow BMP daily (4) Hypokalemia Likely related to poor oral intake as well Plan: Give K rider for replacement Initiate ICU electrolyte protocol Follow BMP daily (5) UTI Abnormal UA and elevated WBC (12.3) and altered mental status suggest she has a clinically significant UTI. I am hoping that treating the UTI will give her some improvement in her appetite and her energy. Plan: Continue with empiric IV ceftriaxone daily Await culture results to tailor antibiotics I updated the guardian by phone today (6) Dementia As per history. Plan: Await reconciled med list to start any dementia meds that she may be on I plan to discuss CODE status and overall management wishes with her guardian>> I spoke to Faviola and an ACP was done and POLST form completed (see separate note) Qualifiers:
[2023-07-13] MEDS ORDERED: POTASSIUM PHOSPHATE 15 MMOL in SODIUM CHLORIDE 0.9% 250 ML IV ONE (09:23)
[2023-07-13] MEDS: DEXTROSE 5% 1,000 ML IV SCH (11:34)
[2023-07-13] MEDS: SODIUM CHLORIDE FLUSH 0.9% 10 ML SYRINGE IVP SCH ×2 (11:35→17:44)
[2023-07-13] MEDS ORDERED: CALCIUM GLUC 1,000MG/50ML-NACL 1,000 MG/50 ML BAG IV ONE ×2 (14:00→18:36)
--- NOTE | 2023-07-13 14:00 | PHARMACY PROGRESS NOTE ---
- Best Possible Medication History Admit Date and Time: 07/12/231923 Processed by: Pharmacy Medication History completed: Yes Patient Interview: Completed Secondary Source(s): Other family member, Caregiver, Insurance records As the person ultimately responsible for medication therapy, providers are able to order a medication from an existing home medication list in [facility] via the "Reconcile Routine" prior to Confirmation of that medication by academic support director. Such practice is discouraged except when the physician, in their clinical judgment, deems that a medical need exists for a medication without regard to previous use.
[2023-07-13] MEDS: POTASSIUM CHLOR 10 MEQ/100 ML 10 MEQ/100 ML BAG IV SCH ×4 (14:14→17:44)
--- NOTE | 2023-07-13 15:23 | ADVANCE CARE PLANNING NOTE ---
Advance Care Planning - Planning Encounter Date: 07/13/23 Time: 13:30 Purpose: To establish her CODE BLUE status and desire for aggressivity of medical care, from her guardian. Parties in Attendance: I spoke to the guardian Faviola Samson by phone on speaker, and the pt's RN Edna Zeng was also speaking and participating. Decisional Capacity of the Patient: The pt has Dementia and does not have capacity to make decisions. - Diagnosis for Encounter (1) FTT (failure to thrive) in adult Summary: Patient has dementia and has caregivers at home. She can normally stand and toilet by herself and walks to the table and feeds herself. Over the last 3 days she has been more lethargic, remaining in bed, and taking in no food or water by mouth. - Encounter Subjective/Patient's Story: The patient has dementia, fourth time caregivers, she herself is able to walk and feed herself and toilet herself. The last 3 days the patient has been more lethargic, remaining in bed, is refusing food or liquids. The last 3 days she has also had black BMs and yesterday had a red BM so was brought to the ER. She is being treated for GI bleed, and a UTI was found on work-up and she is severely dehydrated with an elevated BUN/creatinine and severe hypernatremia. Objective/Medical Story: The patient is normally not bedbound, she has no bedsores and is usually independent. She presents in severe dehydration with skin tenting and failure to thrive with dehydration, elevated BUN/creatinine and sodium of 157. She also has had documented black stools now red stool and has a presumed upper GI bleed. She was not hypotensive. She was admitted to the ICU and started on IV Protonix drip. This discussion is being done to ascertain how aggressively the guardian wants us to continue with her work-up and medical management. Goals of Care: Faviola, her guardian, indicates that she wants the patient to be comfortable. She does not want the patient resuscitated if she should naturally have a respiratory arrest or cardiac arrest. We also discussed that IV fluids and IV antibiotics are fine. No artificial feeding such as NG tube is desirable. Also no colonoscopy, upper endoscopy or conscious sedation or other anesthesia are desirable. Plan: A POLST form is being filled out. The consent was given by phone therefore a witness is present and the RN Edna is cosigning the POLST. I will change her CODE STATUS to DNR. I will update the general surgeon that no endoscopy is planned going forward. Code Status: Do Not Attempt Resuscitation Time spent on advance care plannin
[2023-07-13 17:52] LABS: CALCIUM, IONIZED 1.1 mmol/L (1.15-1.33); VBG PH 7.444 (7.31-7.41)
[2023-07-14] MEDS: DEXTROSE 5% 1,000 ML IV SCH ×2 (01:01→14:47)
[2023-07-14] MEDS: SODIUM CHLORIDE FLUSH 0.9% 10 ML SYRINGE IVP SCH ×3 (01:02→18:52)
[2023-07-14] MEDS: POTASSIUM CHLOR 10 MEQ/100 ML 10 MEQ/100 ML BAG IV SCH ×4 (01:56→05:12)
[2023-07-14 05:06] LABS: BASOPHILS % (AUTO) 0.1 %; EOSINOPHILS # (AUTO) 0.2 10^3/uL (0.0-0.7); EOSINOPHILS % (AUTO) 2.2 %; HCT - HEMATOCRIT 30.3 % (37.0-47.0); HGB - HEMOGLOBIN 9.7 g/dL (12.0-16.0); LYMPHOCYTES # (AUTO) 1.3 10^3/uL (1.5-3.5); LYMPHOCYTES % (AUTO) 16.8 %; MEAN CORPUSCULAR HEMOGLOBIN 30.1 pg (27.0-31.0); MEAN CORPUSCULAR VOLUME 94.1 fL (81.0-99.0); MEAN PLATELET VOLUME 12.9 fL (7.9-10.8); MONOCYTES # (AUTO) 0.6 10^3/uL (0.0-1.0); MONOCYTES % (AUTO) 7.9 %; NEUTROPHILS # (AUTO) 5.5 10^3/uL (1.5-6.6); NEUTROPHILS % (AUTO) 69.9 %; NRBC ABSOLUTE COUNT (AUTO) 0.02 x10^3/uL; NUCLEATED RED BLOOD CELLS AUTO 0.3 /100WBC; PLT - PLATELET COUNT 155 10^3/uL (130-450); RED BLOOD COUNT 3.22 10^6/uL (4.20-5.40); RED CELL DISTRIBUTION WIDTH 16.3 % (12.0-15.0); WHITE BLOOD COUNT 7.8 x10^3/uL (4.8-10.8)
[2023-07-14 05:20] LABS: CALCIUM 8.5 mg/dL (8.5-10.3); CREATININE 0.6 mg/dL (0.6-1.3); POTASSIUM 3.3 mmol/L (3.5-4.5)
[2023-07-14] MEDS: cefTRIAXone 1 GM in SODIUM CHLORIDE 0.9% MINIBAG 100 ML IV SCH (09:00)
[2023-07-14] MEDS: PANTOPRAZOLE 40 MG VIAL IV SCH ×2 (09:00→20:17)
[2023-07-14] MEDS ORDERED: BISACODYL 10 MG SUPP PR PRN (11:36)
[2023-07-14] MEDS: SERTRALINE 25 MG TABLET PO SCH (12:43)
--- NOTE | 2023-07-14 19:43 | PROVIDER PROGRESS NOTE ---
Assessment/Plan - Problem List (1) FTT (failure to thrive) in adult Assessment/Plan: The patient has been refusing an oral diet or even to drink anything. She has also been starting to refuse p.o. meds Plan: We will allow another day of IV hydration plus IV antibiotics for the UTI, and continue to encourage her diet. (2) GI blood loss anemia Record indicates that patient had black stools for 2 days then was found to have BRBPR. Hemoglobin was greater than 10 but she was also very dehydrated at presentation. Guaiac of stool was positive in ED. I spoke to the guardian Faviola and no endoscopy is planned. I updated Dr Thomson. Pt was moved out of the ICU. Plan: Continue with Protonix but will change the Protonix drip to IV twice daily dosing Appreciate general surgery input I will advance liquid diet to pureed (3) Hypernatremia Due to dehydration from not taking p.o. food or liquids for 3 days Patient was started on D5W, her sodium has decreased from 157 to 144 today (all labs were reviewed). Plan: Continue with free water IV hydration, using D5W Follow serum sodium daily I will advance her diet to allow more choices (4) SONJA BUN/creatinine 63/0.9 at presentation>> 26/0.6 today with iv fluids infusing. Plan: Encourage po liquids Avoid nephrotoxins Follow BMP daily (5) Hypokalemia Likely related to poor oral intake as well Plan: Give K rider for replacement Follow BMP daily (6) UTI Abnormal UA and elevated WBC (12.3) and altered mental status suggest she has a clinically significant UTI. I am hoping that treating the UTI will give her some improvement in her appetite and her energy. Plan: Continue with empiric IV ceftriaxone daily Await culture results to tailor antibiotics (7) Dementia As per history. She is not on any dementia meds I spoke to Faivola and an ACP was done and POLST form completed (see separate note) Plan: DNR/DNI status and selective care was desired by patient's guardian - Current Meds Current Meds: Current Medications Generic Name Dose Route Start Last Admin Trade Name Freq PRN Reason Stop Dose Admin Dextrose 1,000 mls @ 75 mls/hr 07/12/23 20:00 07/14/23 14:47 D5w IV 75 mls/hr .[id number] ANCA Administration Ceftriaxone Sodium 1 gm/ 100 mls @ 200 mls/hr 07/13/23 09:00 07/14/23 09:30 Sodium Chloride IV Infused DAILY ANCA Infusion Pantoprazole Sodium 40 mg 07/14/23 09:00 07/14/23 09:00 Pantoprazole 40 Mg Vial IV 40 mg BID ANCA Administration Sertraline HCl 25 mg 07/14/23 12:00 07/14/23 12:43 Sertraline 25 Mg Tablet PO Not Given DAILY ANCA Sodium Chloride 10 ml 07/13/23 01:00 07/14/23 18:52 Sodium Chloride Flush 0.9% 10 Ml Syringe IVP Not Given 0100,0900,1700 ANCA - Lab Result Fish Bone Diagrams: 07/16/23 05:21 07/17/23 05:09 - Additional Planning My Orders: My Active Orders 07/14/23 09:00 Pantoprazole [Protonix] 40 mg IV BID 07/14/23 Lunch DIET [Full Liquid Diet] [DIET] 07/14/23 11:36 Bisacodyl Supp [Dulcolax Supp] 10 mg MO DAILY PRN 07/14/23 12:00 Sertraline [Zoloft] 25 mg PO DAILY 07/14/23 21:00 traZODone [Desyrel] 50 mg PO HS 07/15/23 07:00 Levothyroxine [Synthroid] 100 mcg PO QDAC 07/15/23 08:00 Multivitamin W/Minerals [Theragran M] 1 tab PO DAILYWM Subjective - Subjective Patient Reports: Resting Comfortably, No Complaints Nursing Reports: Confused, Other (Refusing all meds, food and liquids by mouth. Has been in bed [facility]) Objective Vital Signs: Vital Signs - 24 hr 07/13/23 07/14/23 07/14/23 21:00 00:07 04:12 Temperature 36.8 C 36.7 C Heart Rate [ Brachial] Heart Rate [ 68 65 77 Monitoring electrodes] Respiratory 14 14 14 Rate Blood Pressure 110/60 95/57 L 90/50 L [Left Brachial artery] O2 Saturation 100 100 100 07/14/23 07/14/23 07/14/23 08:59 11:00 13:58 Temperature 36.3 C L 37.2 C Heart Rate [ 65 54 L Brachial] Heart Rate [ Monitoring electrodes] Respiratory 16 16 16 Rate Blood Pressure 90/45 L 111/57 L [Left Brachial artery] O2 Saturation 100 100 07/14/23 15:52 Temperature 36.6 C Heart Rate [ 60 Brachial] Heart Rate [ Monitoring electrodes] Respiratory 16 Rate Blood Pressure 117/51 L [Left Brachial artery] O2 Saturation 100 Oxygen O2 Source Room air I&O (Last 24 Hrs): Intake and Output Totals x24h 07/12/23 07/13/23 07/14/23 23:59 23:59 23:59 Intake Total 1846 2557.500 2097.5 Output Total 1630 1275 Balance 1846 927.500 822.5 General: Alert, No acute distress HEENT: Mucous membr. moist/pink Neck: Supple, No JVD Neuro: Alert, Disoriented, Non Focal, Other (Poor memory. Repeats herself.) Cardiovascular: Regular rate Respiratory: No respiratory distress Abdomen: Soft, No tenderness Extremities: No clubbing, No edema, Other ((+) skin tenting) - Results Results: Laboratory Results WBC 7.8 x10^3/uL (4.8-10.8) 07/14/23 04:39 RBC 3.22 10^6/uL (4.20-5.40) L 07/14/23 04:39 Hgb 10.6 g/dL (12.0-16.0) L 07/14/23 14:45 Hct 30.3 % (37.0-47.0) L 07/14/23 04:39 MCV 94.1 fL (81.0-99.0) 07/14/23 04:39 MCH 30.1 pg (27.0-31.0) 07/14/23 04:39 MCHC 32.0 g/dL (32.0-36.0) 07/14/23 04:39 RDW 16.3 % (12.0-15.0) H 07/14/23 04:39 Plt Count 155 10^3/uL (130-450) 07/14/23 04:39 MPV 12.9 fL (7.9-10.8) H 07/14/23 04:39 Neut # (Auto) 5.5 10^3/uL (1.5-6.6) 07/14/23 04:39 Lymph # (Auto) 1.3 10^3/uL (1.5-3.5) L 07/14/23 04:39 Ransom # (Auto) 0.6 10^3/uL (0.0-1.0) 07/14/23 04:39 Eos # (Auto) 0.2 10^3/uL (0.0-0.7) 07/14/23 04:39 Baso # (Auto) 0.0 10^3/uL (0.0-0.1) 07/14/23 04:39 Absolute Nucleated RBC 0.02 x10^3/uL 07/14/23 04:39 Nucleated RBC % 0.3 /100WBC 07/14/23 04:39 VBG pH 7.444 (7.31-7.41) H 07/13/23 17:25 Ionized Calcium 1.10 mmol/L (1.15-1.33) L 07/13/23 17:25 Sodium 142 mmol/L (135-145) 07/14/23 14:45 Potassium 3.3 mmol/L (3.5-4.5) L 07/14/23 07:47 Chloride 112 mmol/L (101-111) H 07/14/23 04:39 Carbon Dioxide 26 mmol/L (21-32) 07/14/23 04:39 Anion Gap 6.0 (6-13) 07/14/23 04:39 BUN 26 mg/dL (6-20) H 07/14/23 04:39 Creatinine 0.6 mg/dL (0.6-1.3) 07/14/23 04:39 Estimated GFR (MDRD) 97 (>89) 07/14/23 04:39 Glucose 103 mg/dL (74-104) 07/14/23 04:39 Calcium 8.5 mg/dL (8.5-10.3) 07/14/23 04:39 Phosphorus 2.6 mg/dL (2.5-5.0) 07/13/23 17:25 Magnesium 2.0 mg/dL (1.7-2.3) 07/13/23 08:22 Total Bilirubin 0.6 mg/dL (0.2-1.0) 07/12/23 13:53 AST 20 IU/L (10-42) 07/12/23 13:53 ALT 16 IU/L (10-60) 07/12/23 13:53 Alkaline Phosphatase 66 IU/L (42-121) 07/12/23 13:53 Total Protein 6.8 g/dL (6.4-8.9) 07/12/23 13:53 Albumin 4.0 g/dL (3.2-5.5) 07/12/23 13:53 Globulin 2.8 g/dL (2.1-4.2) 07/12/23 13:53 Albumin/Globulin Ratio 1.4 (1.0-2.2) 07/12/23 13:53 Lipase 20 U/L (11-82) 07/12/23 13:53 Urine Color DARK YELLOW 07/12/23 13:09 Urine Clarity CLEAR (CLEAR) 07/12/23 13:09 Urine pH 5.5 PH (5.0-7.5) 07/12/23 13:09 Ur Specific [place] 1.020 (1.002-1.030) 07/12/23 13:09 Urine Protein 30 mg/dL (NEGATIVE) H 07/12/23 13:09 Urine Glucose (UA) NEGATIVE mg/dL (NEGATIVE) 07/12/23 13:09 Urine Ketones TRACE mg/dL (NEGATIVE) 07/12/23 13:09 Urine Occult Blood TRACE-INTA (NEGATIVE) 07/12/23 13:09 Urine Nitrite POSITIVE (NEGATIVE) H 07/12/23 13:09 Urine Bilirubin NEGATIVE (NEGATIVE) 07/12/23 13:09 Urine Urobilinogen 0.2 (NORMAL) E.U./dL (NORMAL) 07/12/23 13:09 Ur Leukocyte Esterase SMALL (NEGATIVE) H 07/12/23 13:09 Urine RBC 0-5 /HPF (0-5) 07/12/23 13:09 Urine WBC >25 /HPF (0-5) H 07/12/23 13:09 Urine WBC Clumps PRESENT 07/12/23 13:09 Ur Squamous Epith Cells NONE SEEN (<= Few) 07/12/23 13:09 Urine Bacteria Moderate /HPF (None Seen) H 07/12/23 13:09 Ur Microscopic Review INDICATED 07/12/23 13:09 Urine Culture Comments INDICATED 07/12/23 13:09 Nasal Screen MRSA (PCR) NEGATIVE (NEGATIVE) 07/13/23 04:46 Blood Type A POSITIVE 07/12/23 20:07 Blood Type Recheck A POSITIVE 07/12/23 13:53 Antibody Screen NEGATIVE 07/12/23 20:07
[2023-07-14] MEDS ORDERED: traZODone 50 MG TABLET PO SCH (21:00)
[2023-07-15] MEDS: SODIUM CHLORIDE FLUSH 0.9% 10 ML SYRINGE IVP SCH ×3 (00:24→16:57)
[2023-07-15] MEDS: DEXTROSE 5% 1,000 ML IV SCH ×2 (04:20→22:31)
[2023-07-15] MEDS ORDERED: LEVOTHYROXINE 100 MCG TABLET PO SCH (07:00)
[2023-07-15 09:07] LABS: BASOPHILS % (AUTO) 0.4 %; EOSINOPHILS # (AUTO) 0.2 10^3/uL (0.0-0.7); EOSINOPHILS % (AUTO) 3.1 %; HCT - HEMATOCRIT 32.2 % (37.0-47.0); HGB - HEMOGLOBIN 10.7 g/dL (12.0-16.0); MEAN CORPUSCULAR HEMOGLOBIN 30.5 pg (27.0-31.0); MEAN CORPUSCULAR HGB CONC 33.2 g/dL (32.0-36.0); MEAN CORPUSCULAR VOLUME 91.7 fL (81.0-99.0); MEAN PLATELET VOLUME 12.8 fL (7.9-10.8); MONOCYTES # (AUTO) 0.5 10^3/uL (0.0-1.0); MONOCYTES % (AUTO) 6.5 %; NEUTROPHILS # (AUTO) 5.3 10^3/uL (1.5-6.6); NEUTROPHILS % (AUTO) 73.8 %; NRBC ABSOLUTE COUNT (AUTO) 0.02 x10^3/uL; NUCLEATED RED BLOOD CELLS AUTO 0.3 /100WBC; PLT - PLATELET COUNT 141 10^3/uL (130-450); RED BLOOD COUNT 3.51 10^6/uL (4.20-5.40); RED CELL DISTRIBUTION WIDTH 16.1 % (12.0-15.0); WHITE BLOOD COUNT 7.1 x10^3/uL (4.8-10.8)
[2023-07-15] MEDS: cefTRIAXone 1 GM in SODIUM CHLORIDE 0.9% MINIBAG 100 ML IV SCH (09:22)
[2023-07-15] MEDS: PANTOPRAZOLE 40 MG VIAL IV SCH (09:22)
[2023-07-15] MEDS: SERTRALINE 25 MG TABLET PO SCH (09:23)
[2023-07-15] MEDS: MULTIVITAMIN W/MINERALS TABLET PO SCH (09:23)
[2023-07-15 09:33] LABS: CALCIUM 8.6 mg/dL (8.5-10.3); CREATININE 0.7 mg/dL (0.6-1.3); MAGNESIUM 1.6 mg/dL (1.7-2.3); POTASSIUM 2.9 mmol/L (3.5-4.5)
--- NOTE | 2023-07-15 11:17 | PROVIDER PROGRESS NOTE ---
Assessment/Plan - Problem List (1) FTT (failure to thrive) in adult Assessment/Plan: I spoke to her guardian Faviola today to discuss the patient's refusal to eat or drink anything. She also refuses p.o. meds. Faviola informed me that the patient is a very picky eater, and there is a list of approximately 7 things that the patient will eat and nothing besides that. I was able to locate the list of items, listed on a white sheet of paper hanging on the patient's white board in her room today. This list was not brought to my attention by any staff member since this lady's admission Plan: I will order a Regular diet because the things she will eat are solids and include mixed nuts, sausage patties, chicken nuggets, egg waffles, cut red apples, peas and only warm water Cont IV fluid hydration Faviola said the pt is a fighter and does not want to "give up" yet. No Comfort Care or Hospice referral planned yet. (2) Severe protein-calorie malnutrition Assessment/Plan: Patient has nutritional intake of less than 50% for 2 weeks or more, weight loss of 8% in 1 month (dropped from 72 kg to 66 kg in 1 month), and she is now bedridden. Plan: As in #1 (3) GI blood loss anemia Record indicates that patient had black stools for 2 days then was found to have BR BPR. Hemoglobin is greater than 10 but she was also very dehydrated at presentation Guaiac of stool was positive in ED I spoke to Faviola, her guardian and the patient will not be undergoing any endoscopy. I updated Dr. Govea then Plan: Cont iv Protonix, since she is not taking po meds reliably (4) Hypernatremia Due to dehydration from not taking p.o. food or liquids for several days Patient was started on D5W, her sodium has decreased from 157 >> 144 yesterday and 142 today (all labs were reviewed). Plan: Follow serum sodium daily now Cont gentle hydration (5) SONJA BUN/creatinine 63/0.9 at presentation>> 14/0.7 today on several days of hydration Plan: Continue with free water IV hydration, using D5W Avoid nephrotoxins Follow BMP daily (6) Hypokalemia Likely related to poor oral intake as well Plan: Give K rider for replacement Initiate ICU electrolyte protocol Follow BMP daily (7) UTI Abnormal UA and elevated WBC (12.3) and altered mental status suggest she has a clinically significant UTI. She has received 3 days of empiric IV ceftriaxone Her urine cx has grown no bacteria. This may have been from having a partially treated UTI from being on recent oral antibiotics however Plan: Will stop the empiric IV ceftriaxone as she has recevd 3 days now (8) Dementia As per history. Plan: Supportive care - Current Meds Current Meds: Current Medications Generic Name Dose Route Start Last Admin Trade Name Freq PRN Reason Stop Dose Admin Dextrose 1,000 mls @ 75 mls/hr 07/12/23 20:00 07/15/23 04:20 D5w IV 75 mls/hr .[id number] ANCA Administration Multivitamins/Minerals 1 tab 07/15/23 08:00 07/15/23 09:23 Multivitamin W/Minerals Tablet PO Not Given DAILYWM ANCA Pantoprazole Sodium 40 mg 07/14/23 09:00 07/15/23 09:22 Pantoprazole 40 Mg Vial IV 40 mg BID ANCA Administration Sodium Chloride 10 ml 07/13/23 01:00 07/15/23 09:23 Sodium Chloride Flush 0.9% 10 Ml Syringe IVP 10 ml 0100,0900,1700 ANCA Administration - Lab Result Fish Bone Diagrams: 07/16/23 05:21 07/17/23 05:09 - Additional Planning My Orders: My Active Orders 07/14/23 Lunch DIET [Full Liquid Diet] [DIET] 07/14/23 11:36 Bisacodyl Supp [Dulcolax Supp] 10 mg [place] DAILY PRN 07/15/23 08:00 Multivitamin W/Minerals [Theragran M] 1 tab PO DAILYWM 07/15/23 11:11 Miscellaenous Nursing Order [RC] QSHIFT 07/15/23 Lunch DIET [Regular Diet] [DIET] 07/15/23 12:00 Potassium Chloride/Water 10 mEq/100 mL q1h (Enter # of bags) Potassium Chlor 10 Meq/100 ml [Potassium Chloride] 10 meq in 100 ml IV Q1H Subjective - Subjective Patient Reports: Resting Comfortably, No Complaints Nursing Reports: Other (Refusing all po meds, all po food and po liquids) Objective Vital Signs: Vital Signs - 24 hr 07/14/23 07/14/23 07/14/23 13:58 15:52 23:58 Temperature 37.2 C 36.6 C 36.7 C Heart Rate [ 54 L 60 58 L Brachial] Respiratory 16 16 16 Rate Blood Pressure 111/57 L 117/51 L [Left Brachial artery] Blood Pressure 97/85 H [Right Brachial artery] O2 Saturation 100 100 92 Oxygen O2 Source Room air I&O (Last 24 Hrs): Intake and Output Totals x24h 07/13/23 07/14/23 07/15/23 23:59 23:59 23:59 Intake Total 2557.500 2097.5 1100 Output Total 1630 2125 1525 Balance 927.500 -27.5 -425 General: Alert, No acute distress, Other (Cachectic) HEENT: EOMI Neck: Supple, No JVD Neuro: Alert, Disoriented, Non Focal Cardiovascular: Regular rate Respiratory: No respiratory distress Abdomen: Soft Extremities: No clubbing, No edema, No tenderness/swelling - Results Results: Laboratory Results WBC 7.1 x10^3/uL (4.8-10.8) 07/15/23 08:55 RBC 3.51 10^6/uL (4.20-5.40) L 07/15/23 08:55 Hgb 10.7 g/dL (12.0-16.0) L 07/15/23 08:55 Hct 32.2 % (37.0-47.0) L 07/15/23 08:55 MCV 91.7 fL (81.0-99.0) 07/15/23 08:55 MCH 30.5 pg (27.0-31.0) 07/15/23 08:55 MCHC 33.2 g/dL (32.0-36.0) 07/15/23 08:55 RDW 16.1 % (12.0-15.0) H 07/15/23 08:55 Plt Count 141 10^3/uL (130-450) 07/15/23 08:55 MPV 12.8 fL (7.9-10.8) H 07/15/23 08:55 Neut # (Auto) 5.3 10^3/uL (1.5-6.6) 07/15/23 08:55 Lymph # (Auto) 1.0 10^3/uL (1.5-3.5) L 07/15/23 08:55 [place] # (Auto) 0.5 10^3/uL (0.0-1.0) 07/15/23 08:55 Eos # (Auto) 0.2 10^3/uL (0.0-0.7) 07/15/23 08:55 Baso # (Auto) 0.0 10^3/uL (0.0-0.1) 07/15/23 08:55 Absolute Nucleated RBC 0.02 x10^3/uL 07/15/23 08:55 Nucleated RBC % 0.3 /100WBC 07/15/23 08:55 VBG pH 7.444 (7.31-7.41) H 07/13/23 17:25 Ionized Calcium 1.10 mmol/L (1.15-1.33) L 07/13/23 17:25 Sodium 142 mmol/L (135-145) 07/15/23 08:55 Potassium 2.9 mmol/L (3.5-4.5) L 07/15/23 08:55 Chloride 107 mmol/L (101-111) 07/15/23 08:55 Carbon Dioxide 29 mmol/L (21-32) 07/15/23 08:55 Anion Gap 6.0 (6-13) 07/15/23 08:55 BUN 14 mg/dL (6-20) 07/15/23 08:55 Creatinine 0.7 mg/dL (0.6-1.3) 07/15/23 08:55 Estimated GFR (MDRD) 81 (>89) L 07/15/23 08:55 Glucose 113 mg/dL (74-104) H 07/15/23 08:55 Calcium 8.6 mg/dL (8.5-10.3) 07/15/23 08:55 Phosphorus 2.6 mg/dL (2.5-5.0) 07/13/23 17:25 Magnesium 1.6 mg/dL (1.7-2.3) L 07/15/23 08:55 Total Bilirubin 0.6 mg/dL (0.2-1.0) 07/12/23 13:53 AST 20 IU/L (10-42) 07/12/23 13:53 ALT 16 IU/L (10-60) 07/12/23 13:53 Alkaline Phosphatase 66 IU/L (42-121) 07/12/23 13:53 Total Protein 6.8 g/dL (6.4-8.9) 07/12/23 13:53 Albumin 4.0 g/dL (3.2-5.5) 07/12/23 13:53 Globulin 2.8 g/dL (2.1-4.2) 07/12/23 13:53 Albumin/Globulin Ratio 1.4 (1.0-2.2) 07/12/23 13:53 Lipase 20 U/L (11-82) 07/12/23 13:53 Urine Color DARK YELLOW 07/12/23 13:09 Urine Clarity CLEAR (CLEAR) 07/12/23 13:09 Urine pH 5.5 PH (5.0-7.5) 07/12/23 13:09 Ur Specific [place] 1.020 (1.002-1.030) 07/12/23 13:09 Urine Protein 30 mg/dL (NEGATIVE) H 07/12/23 13:09 Urine Glucose (UA) NEGATIVE mg/dL (NEGATIVE) 07/12/23 13:09 Urine Ketones TRACE mg/dL (NEGATIVE) 07/12/23 13:09 Urine Occult Blood TRACE-INTA (NEGATIVE) 07/12/23 13:09 Urine Nitrite POSITIVE (NEGATIVE) H 07/12/23 13:09 Urine Bilirubin NEGATIVE (NEGATIVE) 07/12/23 13:09 Urine Urobilinogen 0.2 (NORMAL) E.U./dL (NORMAL) 07/12/23 13:09 Ur Leukocyte Esterase SMALL (NEGATIVE) H 07/12/23 13:09 Urine RBC 0-5 /HPF (0-5) 07/12/23 13:09 Urine WBC >25 /HPF (0-5) H 07/12/23 13:09 Urine WBC Clumps PRESENT 07/12/23 13:09 Ur Squamous Epith Cells NONE SEEN (<= Few) 07/12/23 13:09 Urine Bacteria Moderate /HPF (None Seen) H 07/12/23 13:09 Ur Microscopic Review INDICATED 07/12/23 13:09 Urine Culture Comments INDICATED 07/12/23 13:09 Nasal Screen MRSA (PCR) NEGATIVE (NEGATIVE) 07/13/23 04:46 Blood Type A POSITIVE 07/12/23 20:07 Blood Type Recheck A POSITIVE 07/12/23 13:53 Antibody Screen NEGATIVE 07/12/23 20:07
[2023-07-15] MEDS: POTASSIUM CHLOR 10 MEQ/100 ML 10 MEQ/100 ML BAG IV SCH ×4 (13:00→18:37)
[2023-07-15] MEDS ORDERED: LEVOTHYROXINE 100 MCG VIAL IVP SCH (13:00)
[2023-07-15] MEDS: PANTOPRAZOLE 40 MG VIAL IVP SCH (20:50)
[2023-07-16] MEDS: SODIUM CHLORIDE FLUSH 0.9% 10 ML SYRINGE IVP SCH ×3 (05:17→17:25)
[2023-07-16 05:48] LABS: BASOPHILS % (AUTO) 0.5 %; EOSINOPHILS # (AUTO) 0.3 10^3/uL (0.0-0.7); EOSINOPHILS % (AUTO) 4.6 %; HCT - HEMATOCRIT 33.6 % (37.0-47.0); LYMPHOCYTES # (AUTO) 1.3 10^3/uL (1.5-3.5); LYMPHOCYTES % (AUTO) 21.7 %; MEAN CORPUSCULAR HEMOGLOBIN 30.1 pg (27.0-31.0); MEAN CORPUSCULAR HGB CONC 32.7 g/dL (32.0-36.0); MEAN CORPUSCULAR VOLUME 91.8 fL (81.0-99.0); MEAN PLATELET VOLUME 12.7 fL (7.9-10.8); MONOCYTES # (AUTO) 0.5 10^3/uL (0.0-1.0); MONOCYTES % (AUTO) 7.8 %; NEUTROPHILS # (AUTO) 3.9 10^3/uL (1.5-6.6); NEUTROPHILS % (AUTO) 63.1 %; PLT - PLATELET COUNT 150 10^3/uL (130-450); RED BLOOD COUNT 3.66 10^6/uL (4.20-5.40); RED CELL DISTRIBUTION WIDTH 16.2 % (12.0-15.0); WHITE BLOOD COUNT 6.1 x10^3/uL (4.8-10.8)
[2023-07-16 06:06] LABS: CALCIUM 8.6 mg/dL (8.5-10.3); CREATININE 0.7 mg/dL (0.6-1.3); MAGNESIUM 1.6 mg/dL (1.7-2.3); POTASSIUM 2.9 mmol/L (3.5-4.5)
[2023-07-16 06:19] LABS: THYROID STIMULATING HORMONE 7.75 uIU/mL (0.34-5.60)
[2023-07-16] MEDS: MULTIVITAMIN W/MINERALS TABLET PO SCH (08:07)
[2023-07-16] MEDS: PANTOPRAZOLE 40 MG VIAL IVP SCH ×2 (08:07→20:53)
[2023-07-16] MEDS ORDERED: MAGNESIUM SULFATE 2 GRAM 2 GM/50 ML BAG IV ONE (08:41)
[2023-07-16] MEDS ORDERED: POTASSIUM PHOSPHATE 21 MMOL in SODIUM CHLORIDE 0.9% 250 ML IV ONE (08:42)
[2023-07-16] MEDS ORDERED: POTASSIUM CHLOR 10 MEQ/100 ML 10 MEQ/100 ML BAG IV SCH (09:00)
[2023-07-16] MEDS: POTASSIUM CHLOR 10 MEQ/100 ML 10 MEQ/100 ML BAG IV SCH ×2 (10:09→11:15)
[2023-07-16] MEDS: DEXTROSE 5% 1,000 ML IV SCH (12:25)
[2023-07-17] MEDS: DEXTROSE 5% 1,000 ML IV SCH ×2 (00:28→13:27)
[2023-07-17] MEDS: SODIUM CHLORIDE FLUSH 0.9% 10 ML SYRINGE IVP SCH ×3 (00:37→17:40)
[2023-07-17 05:33] LABS: CALCIUM 8.4 mg/dL (8.5-10.3); CREATININE 0.6 mg/dL (0.6-1.3); PHOSPHORUS 2.8 mg/dL (2.5-5.0); POTASSIUM 3.1 mmol/L (3.5-4.5)
[2023-07-17] MEDS: PANTOPRAZOLE 40 MG VIAL IVP SCH ×2 (08:08→20:13)
[2023-07-17] MEDS: MULTIVITAMIN W/MINERALS TABLET PO SCH ×2 (08:08→08:11)
--- NOTE | 2023-07-17 08:56 | PROVIDER PROGRESS NOTE ---
Assessment/Plan - Problem List (1) FTT (failure to thrive) in adult Assessment/Plan: She again refuses to take a diet or liquids orally, and po meds. Two days ago I ordered the things that the patient will eat and nothing besides that: mixed nuts, sausage patties, chicken nuggets, egg waffles, cut red apples, peas and only warm water. She ate 25% yesterday Plan: I reached out to speak to Faviola today (at [phone] and [phone]) to discuss her FTT and to offer Palliative Care or Comfort Care, but there was no answer at either phone # (it is Tuesday today0 Cont IV fluid hydration Iris had said the pt is a fighter and does not want to "give up" yet. No Comfort Care or Hospice referral planned yet. (2) Severe protein-calorie malnutrition Assessment/Plan: Patient has nutritional intake of less than 50% for 2 weeks or more, weight loss of 8% in 1 month (deropped from 72 kg to 66 kg in 1 month), and she is now bedridden. Plan: As in #1 (3) GI blood loss anemia Record indicates that patient had black stools for 2 days then was found to have BR BPR. Hemoglobin is greater than 10 but she was also very dehydrated at presentation Guaiac of stool was positive in ED Plan: Continue with Protonix. I planned on changing Protonix IV twice daily dosing to oral BID, but she is not taking in anything po, even meds No aggressive management, no endoscopy planned (4) Hypokalemia Related to poor oral intake Plan: Give K rider for replacement Follow BMP daily (5) Dementia As per history. Plan: Supportive care (6) UTI Abnormal UA and elevated WBC (12.3) and altered mental status suggest she has a clinically significant UTI. She has received 3 days of empiric IV ceftriaxone Her urine cx has grown no bacteria. This may have been from having a partially treated UTI from being on recent oral antibiotics however I stopped the empiric IV ceftriaxone as she had recevd 3 days (7) Hypernatremia Due to dehydration from not taking p.o. food or liquids for several days Patient was started on D5W, her sodium has improved (all labs were reviewed). Plan: Will continue iv fluids until guardian agrees to stop (8) SONJA BUN/creatinine 63/0.9 at presentation and has resolved as of 07/15. Plan: Cont plan as above - Current Meds Current Meds: Current Medications Generic Name Dose Route Start Last Admin Trade Name [place] PRN Reason Stop Dose Admin Dextrose 1,000 mls @ 75 mls/hr 07/12/23 20:00 07/17/23 00:28 D5w IV 75 mls/hr .[id number] ANCA Administration Multivitamins/Minerals 1 tab 07/15/23 08:00 07/17/23 08:11 Multivitamin W/Minerals Tablet PO Not Given DAILYWM ANCA Pantoprazole Sodium 40 mg 07/15/23 21:00 07/17/23 08:08 Pantoprazole 40 Mg Vial IVP 40 mg BID ANCA Administration Sodium Chloride 10 ml 07/13/23 01:00 07/17/23 08:08 Sodium Chloride Flush 0.9% 10 Ml Syringe IVP 20 ml 0100,0900,1700 ANCA Administration - Lab Result Fish Bone Diagrams: 07/16/23 05:21 07/17/23 05:09 - Additional Planning My Orders: My Active Orders 07/18/23 05:00 MAGNESIUM [CHEM] DAILYLAB PHOSPHORUS [CHEM] DAILYLAB 07/18/23 07:00 Levothyroxine Inj [Synthroid Inj] 175 mcg IVP MoTh@0700 Subjective - Subjective Patient Reports: Resting Comfortably Nursing Reports: Other (Refusing to eat anything and drink anything again today, and spit out her pills) Objective Vital Signs: Vital Signs - 24 hr 07/16/23 07/16/23 07/17/23 16:10 22:00 00:31 Temperature 35.5 C L 36.6 C Heart Rate [ 70 79 69 Brachial] Respiratory 16 16 16 Rate Blood Pressure 95/62 99/53 L [Right Brachial artery] O2 Saturation 98 98 97 07/17/23 07:53 Temperature 36.5 C Heart Rate [ 69 Brachial] Respiratory 16 Rate Blood Pressure 102/52 L [Right Brachial artery] O2 Saturation 99 Oxygen O2 Source Room air I&O (Last 24 Hrs): Intake and Output Totals x24h 07/15/23 07/16/23 07/17/23 23:59 23:59 23:59 Intake Total 2400.000 1400 1160.75 Output Total 2275 2400 825 Balance 125.000 -1000 335.75 General: No acute distress (Appears tired), Other (Cachectic) HEENT: EOMI, Other (sunken eyes) Neck: Supple, No JVD Neuro: Disoriented, Other (lethargic, awakens when spoken to, moves all extrem spontaneously, speaks, is disoriented) Cardiovascular: Regular rate Respiratory: No respiratory distress Abdomen: Soft Extremities: No clubbing, No edema, Other ((+) skin tenting) - Results Results: Laboratory Results WBC 6.1 x10^3/uL (4.8-10.8) 07/16/23 05:21 RBC 3.66 10^6/uL (4.20-5.40) L 07/16/23 05:21 Hgb 11.0 g/dL (12.0-16.0) L 07/16/23 05:21 Hct 33.6 % (37.0-47.0) L 07/16/23 05:21 MCV 91.8 fL (81.0-99.0) 07/16/23 05:21 MCH 30.1 pg (27.0-31.0) 07/16/23 05:21 MCHC 32.7 g/dL (32.0-36.0) 07/16/23 05:21 RDW 16.2 % (12.0-15.0) H 07/16/23 05:21 Plt Count 150 10^3/uL (130-450) 07/16/23 05:21 MPV 12.7 fL (7.9-10.8) H 07/16/23 05:21 Neut # (Auto) 3.9 10^3/uL (1.5-6.6) 07/16/23 05:21 Lymph # (Auto) 1.3 10^3/uL (1.5-3.5) L 07/16/23 05:21 [place] # (Auto) 0.5 10^3/uL (0.0-1.0) 07/16/23 05:21 Eos # (Auto) 0.3 10^3/uL (0.0-0.7) 07/16/23 05:21 Baso # (Auto) 0.0 10^3/uL (0.0-0.1) 07/16/23 05:21 Absolute Nucleated RBC 0.00 x10^3/uL 07/16/23 05:21 Nucleated RBC % 0.0 /100WBC 07/16/23 05:21 VBG pH 7.444 (7.31-7.41) H 07/13/23 17:25 Ionized Calcium 1.10 mmol/L (1.15-1.33) L 07/13/23 17:25 Sodium 140 mmol/L (135-145) 07/17/23 05:09 Potassium 3.1 mmol/L (3.5-4.5) L 07/17/23 05:09 Chloride 106 mmol/L (101-111) 07/17/23 05:09 Carbon Dioxide 30 mmol/L (21-32) 07/17/23 05:09 Anion Gap 4.0 (6-13) L 07/17/23 05:09 BUN 7 mg/dL (6-20) 07/17/23 05:09 Creatinine 0.6 mg/dL (0.6-1.3) 07/17/23 05:09 Estimated GFR (MDRD) 97 (>89) 07/17/23 05:09 Glucose 119 mg/dL (74-104) H 07/17/23 05:09 Calcium 8.4 mg/dL (8.5-10.3) L 07/17/23 05:09 Phosphorus 2.8 mg/dL (2.5-5.0) 07/17/23 05:09 Magnesium 2.0 mg/dL (1.7-2.3) 07/17/23 05:09 Total Bilirubin 0.6 mg/dL (0.2-1.0) 07/12/23 13:53 AST 20 IU/L (10-42) 07/12/23 13:53 ALT 16 IU/L (10-60) 07/12/23 13:53 Alkaline Phosphatase 66 IU/L (42-121) 07/12/23 13:53 Total Protein 6.8 g/dL (6.4-8.9) 07/12/23 13:53 Albumin 4.0 g/dL (3.2-5.5) 07/12/23 13:53 Globulin 2.8 g/dL (2.1-4.2) 07/12/23 13:53 Albumin/Globulin Ratio 1.4 (1.0-2.2) 07/12/23 13:53 Lipase 20 U/L (11-82) 07/12/23 13:53 TSH 7.75 uIU/mL (0.34-5.60) H 07/16/23 05:21 Urine Color DARK YELLOW 07/12/23 13:09 Urine Clarity CLEAR (CLEAR) 07/12/23 13:09 Urine pH 5.5 PH (5.0-7.5) 07/12/23 13:09 Ur Specific [place] 1.020 (1.002-1.030) 07/12/23 13:09 Urine Protein 30 mg/dL (NEGATIVE) H 07/12/23 13:09 Urine Glucose (UA) NEGATIVE mg/dL (NEGATIVE) 07/12/23 13:09 Urine Ketones TRACE mg/dL (NEGATIVE) 07/12/23 13:09 Urine Occult Blood TRACE-INTA (NEGATIVE) 07/12/23 13:09 Urine Nitrite POSITIVE (NEGATIVE) H 07/12/23 13:09 Urine Bilirubin NEGATIVE (NEGATIVE) 07/12/23 13:09 Urine Urobilinogen 0.2 (NORMAL) E.U./dL (NORMAL) 07/12/23 13:09 Ur Leukocyte Esterase SMALL (NEGATIVE) H 07/12/23 13:09 Urine RBC 0-5 /HPF (0-5) 07/12/23 13:09 Urine WBC >25 /HPF (0-5) H 07/12/23 13:09 Urine WBC Clumps PRESENT 07/12/23 13:09 Ur Squamous Epith Cells NONE SEEN (<= Few) 07/12/23 13:09 Urine Bacteria Moderate /HPF (None Seen) H 07/12/23 13:09 Ur Microscopic Review INDICATED 07/12/23 13:09 Urine Culture Comments INDICATED 07/12/23 13:09 Nasal Screen MRSA (PCR) NEGATIVE (NEGATIVE) 07/13/23 04:46 Blood Type A POSITIVE 07/12/23 20:07 Blood Type Recheck A POSITIVE 07/12/23 13:53 Antibody Screen NEGATIVE 07/12/23 20:07
--- NOTE | 2023-07-17 15:42 | PROVIDER PROGRESS NOTE ---
Assessment/Plan - Problem List (1) FTT (failure to thrive) in adult Assessment/Plan: I learned what few things the patient will eat and nothing besides that: mixed nuts, sausage patties, chicken nuggets, egg waffles, cut red apples, peas and only warm water. I ordered those specific items. Today she is eating about 25% Plan: Cont this diet, as was requested Cont IV fluid hydration Iris had said the pt is a fighter and does not want to "give up" yet. No Comfort Care or Hospice referral planned yet. (2) Severe protein-calorie malnutrition Assessment/Plan: Patient has nutritional intake of less than 50% for 2 weeks or more, weight loss of 8% in 1 month (deropped from 72 kg to 66 kg in 1 month), and she is now bedridden. Plan: As in #1 (3) GI blood loss anemia Record indicates that patient had black stools for 2 days then was found to have BR BPR. Hemoglobin is greater than 10 but she was also very dehydrated at presentation Guaiac of stool was positive in ED Plan: Continue with Protonix iv BID. I planned on changing Protonix IV twice daily dosing to oral BID, but she is not taking po meds reliably No aggressive management, no endoscopy planned (4) Hypokalemia Related to poor oral intake Plan: Give K rider for replacement Follow BMP daily (5) Dementia As per history. Plan: Supportive care (6) UTI Abnormal UA and elevated WBC (12.3) and altered mental status suggest she has a clinically significant UTI. She has received 3 days of empiric IV ceftriaxone Her urine cx has grown no bacteria. This may have been from having a partially treated UTI from being on recent oral antibiotics however I stopped the empiric IV ceftriaxone as she had recevd 3 days (7) Hypernatremia Patient was started on D5W. All labs were reviewed. Hypernatremia resolved as of 07/14. It was caused by dehydration from not taking p.o. food or liquids for several days Plan: Will continue iv fluids until guardian agrees to stop (8) SONJA BUN/creatinine 63/0.9 at presentation and has resolved as of 07/15. Plan: Cont plan as above - Current Meds Current Meds: Current Medications Generic Name Dose Route Start Last Admin Trade Name Freq PRN Reason Stop Dose Admin Dextrose 1,000 mls @ 75 mls/hr 07/12/23 20:00 07/17/23 13:27 D5w IV 75 mls/hr .[id number] ANCA Administration Multivitamins/Minerals 1 tab 07/15/23 08:00 07/17/23 08:11 Multivitamin W/Minerals Tablet PO Not Given DAILYWM ANCA Pantoprazole Sodium 40 mg 07/15/23 21:00 07/17/23 08:08 Pantoprazole 40 Mg Vial IVP 40 mg BID ANCA Administration Sodium Chloride 10 ml 07/13/23 01:00 07/17/23 08:08 Sodium Chloride Flush 0.9% 10 Ml Syringe IVP 20 ml 0100,0900,1700 ANCA Administration - Lab Result Fish Bone Diagrams: 07/16/23 05:21 07/17/23 05:09 - Additional Planning My Orders: My Active Orders 07/18/23 05:00 MAGNESIUM [CHEM] DAILYLAB PHOSPHORUS [CHEM] DAILYLAB 07/18/23 07:00 Levothyroxine Inj [Synthroid Inj] 175 mcg IVP MoTh@0700 Subjective - Subjective Patient Reports: Resting Comfortably, No Complaints Nursing Reports: Other (Eating nuts, chicken peas) Objective Vital Signs: Vital Signs - 24 hr 07/16/23 07/16/23 07/17/23 16:10 22:00 00:31 Temperature 35.5 C L 36.6 C Heart Rate [ 70 79 69 Brachial] Respiratory 16 16 16 Rate Blood Pressure 95/62 99/53 L [Right Brachial artery] O2 Saturation 98 98 97 07/17/23 07:53 Temperature 36.5 C Heart Rate [ 69 Brachial] Respiratory 16 Rate Blood Pressure 102/52 L [Right Brachial artery] O2 Saturation 99 Oxygen O2 Source Room air I&O (Last 24 Hrs): Intake and Output Totals x24h 07/15/23 07/16/23 07/17/23 23:59 23:59 23:59 Intake Total 2400.000 1400 2284.50 Output Total 2275 2400 1075 Balance 125.000 -1000 1209.50 General: Alert, No acute distress, Other (Cachectic) HEENT: PERRLA, EOMI Neck: Supple, No JVD Neuro: Alert, Disoriented, Non Focal Cardiovascular: Regular rate Respiratory: No respiratory distress Abdomen: Soft Extremities: No clubbing, No edema, Other ((+) skin tenting) - Results Results: Laboratory Results WBC 6.1 x10^3/uL (4.8-10.8) 07/16/23 05:21 RBC 3.66 10^6/uL (4.20-5.40) L 07/16/23 05:21 Hgb 11.0 g/dL (12.0-16.0) L 07/16/23 05:21 Hct 33.6 % (37.0-47.0) L 07/16/23 05:21 MCV 91.8 fL (81.0-99.0) 07/16/23 05:21 MCH 30.1 pg (27.0-31.0) 07/16/23 05:21 MCHC 32.7 g/dL (32.0-36.0) 07/16/23 05:21 RDW 16.2 % (12.0-15.0) H 07/16/23 05:21 Plt Count 150 10^3/uL (130-450) 07/16/23 05:21 MPV 12.7 fL (7.9-10.8) H 07/16/23 05:21 Neut # (Auto) 3.9 10^3/uL (1.5-6.6) 07/16/23 05:21 Lymph # (Auto) 1.3 10^3/uL (1.5-3.5) L 07/16/23 05:21 [place] # (Auto) 0.5 10^3/uL (0.0-1.0) 07/16/23 05:21 Eos # (Auto) 0.3 10^3/uL (0.0-0.7) 07/16/23 05:21 Baso # (Auto) 0.0 10^3/uL (0.0-0.1) 07/16/23 05:21 Absolute Nucleated RBC 0.00 x10^3/uL 07/16/23 05:21 Nucleated RBC % 0.0 /100WBC 07/16/23 05:21 VBG pH 7.444 (7.31-7.41) H 07/13/23 17:25 Ionized Calcium 1.10 mmol/L (1.15-1.33) L 07/13/23 17:25 Sodium 140 mmol/L (135-145) 07/17/23 05:09 Potassium 3.1 mmol/L (3.5-4.5) L 07/17/23 05:09 Chloride 106 mmol/L (101-111) 07/17/23 05:09 Carbon Dioxide 30 mmol/L (21-32) 07/17/23 05:09 Anion Gap 4.0 (6-13) L 07/17/23 05:09 BUN 7 mg/dL (6-20) 07/17/23 05:09 Creatinine 0.6 mg/dL (0.6-1.3) 07/17/23 05:09 Estimated GFR (MDRD) 97 (>89) 07/17/23 05:09 Glucose 119 mg/dL (74-104) H 07/17/23 05:09 Calcium 8.4 mg/dL (8.5-10.3) L 07/17/23 05:09 Phosphorus 2.8 mg/dL (2.5-5.0) 07/17/23 05:09 Magnesium 2.0 mg/dL (1.7-2.3) 07/17/23 05:09 Total Bilirubin 0.6 mg/dL (0.2-1.0) 07/12/23 13:53 AST 20 IU/L (10-42) 07/12/23 13:53 ALT 16 IU/L (10-60) 07/12/23 13:53 Alkaline Phosphatase 66 IU/L (42-121) 07/12/23 13:53 Total Protein 6.8 g/dL (6.4-8.9) 07/12/23 13:53 Albumin 4.0 g/dL (3.2-5.5) 07/12/23 13:53 Globulin 2.8 g/dL (2.1-4.2) 07/12/23 13:53 Albumin/Globulin Ratio 1.4 (1.0-2.2) 07/12/23 13:53 Lipase 20 U/L (11-82) 07/12/23 13:53 TSH 7.75 uIU/mL (0.34-5.60) H 07/16/23 05:21 Urine Color DARK YELLOW 07/12/23 13:09 Urine Clarity CLEAR (CLEAR) 07/12/23 13:09 Urine pH 5.5 PH (5.0-7.5) 07/12/23 13:09 Ur Specific [place] 1.020 (1.002-1.030) 07/12/23 13:09 Urine Protein 30 mg/dL (NEGATIVE) H 07/12/23 13:09 Urine Glucose (UA) NEGATIVE mg/dL (NEGATIVE) 07/12/23 13:09 Urine Ketones TRACE mg/dL (NEGATIVE) 07/12/23 13:09 Urine Occult Blood TRACE-INTA (NEGATIVE) 07/12/23 13:09 Urine Nitrite POSITIVE (NEGATIVE) H 07/12/23 13:09 Urine Bilirubin NEGATIVE (NEGATIVE) 07/12/23 13:09 Urine Urobilinogen 0.2 (NORMAL) E.U./dL (NORMAL) 07/12/23 13:09 Ur Leukocyte Esterase SMALL (NEGATIVE) H 07/12/23 13:09 Urine RBC 0-5 /HPF (0-5) 07/12/23 13:09 Urine WBC >25 /HPF (0-5) H 07/12/23 13:09 Urine WBC Clumps PRESENT 07/12/23 13:09 Ur Squamous Epith Cells NONE SEEN (<= Few) 07/12/23 13:09 Urine Bacteria Moderate /HPF (None Seen) H 07/12/23 13:09 Ur Microscopic Review INDICATED 07/12/23 13:09 Urine Culture Comments INDICATED 07/12/23 13:09 Nasal Screen MRSA (PCR) NEGATIVE (NEGATIVE) 07/13/23 04:46 Blood Type A POSITIVE 07/12/23 20:07 Blood Type Recheck A POSITIVE 07/12/23 13:53 Antibody Screen NEGATIVE 07/12/23 20:07
[2023-07-17] MEDS: SODIUM CHLORIDE FLUSH 0.9% 10 ML SYRINGE IVP PRN (20:13)
[2023-07-18] MEDS: DEXTROSE 5% 1,000 ML IV SCH (03:00)
[2023-07-18] MEDS: SODIUM CHLORIDE FLUSH 0.9% 10 ML SYRINGE IVP SCH ×3 (03:02→20:40)
[2023-07-18 06:36] LABS: MAGNESIUM 1.9 mg/dL (1.7-2.3); PHOSPHORUS 2.4 mg/dL (2.5-5.0)
[2023-07-18] MEDS ORDERED: LEVOTHYROXINE 100 MCG VIAL IVP SCH (07:00)
[2023-07-18] MEDS: MULTIVITAMIN W/MINERALS TABLET PO SCH (08:32)
[2023-07-18] MEDS: PANTOPRAZOLE 40 MG VIAL IVP SCH ×2 (09:32→20:40)
[2023-07-18] MEDS: SODIUM CHLORIDE FLUSH 0.9% 10 ML SYRINGE IVP PRN (09:32)
[2023-07-18] MEDS ORDERED: DEXTROSE 5% 1,000 ML IV SCH (10:31)
--- NOTE | 2023-07-18 12:19 | PROVIDER PROGRESS NOTE ---
Assessment/Plan - Problem List (1) FTT (failure to thrive) in adult Assessment/Plan: She ate for the first time om 07/16, then again refused to take a diet or liquids orally yesterday 07/17, and has only taken bites today. Several days ago I ordered the things that the patient will eat and nothing besides that: mixed nuts, sausage patties, chicken nuggets, egg waffles, cut red apples, peas and only warm water. Shortly after admission, I spoke to her court appointed guardian Faviola, and we established that the patient will not be getting a PEG tube or NG tube. I spoke to Faviola again today ([phone] and [phone]). I said suspect that the patient's body is shutting down since she is refusing a diet and oral liquids, and I described her FTT and offered Comfort Care and Hospice. Faviola said she wants to keep trying to have staff feed her. (The 24-hour caregivers that the patient had at home are here and are at her bedside and are trying to feed her). We discussed that the patient cannot remain an inpatient just for receiving iv fluids, and that I will be weaning down her IV fluids, now that her IV antibiotics are done. Plan: I will decrease IV fluid rate today and stop it by tomorrow Faviola had said the pt is a fighter and Iris does not want to give up yet. No Comfort Care or Hospice referral was agreed to yet. Faviola also said she wants the pt to work with PT and OT. I will order PT and OT evals today. The patient is to be discharged to a long-term care facility from here, which is already arranged. Faviola will be reaching out to the facility today to see if the pt can be on Hospice care when she is there (2) Severe protein-calorie malnutrition Assessment/Plan: Patient has nutritional intake of less than 50% for 2 weeks or more, weight loss of 8% in 1 month (deropped from 72 kg to 66 kg in 1 month), and she is now bedridden. Plan: As in #1 (3) GI blood loss anemia Record indicates that patient had black stools for 2 days at home, then was found to have BR BPR. Guaiac of stool was positive in ED. Hemoglobin is greater than 10 but she was also very dehydrated at presentation The patient had been admitted to the ICU on a Protonix drip, by the Telemedicine doctor. The following morning I spoke to Iris and established that there will be no aggressive management, no endoscopy planned. Plan: Continue with Protonix. I planned on changing Protonix IV twice daily dosing to oral BID, but she is not taking in any oral meds (4) Hypokalemia Related to poor oral intake Plan: Give K rider for replacement Follow BMP daily (5) Dementia As per history. Plan: Supportive care (6) UTI Abnormal UA and elevated WBC (12.3) and altered mental status suggest she has a clinically significant UTI. She has received 3 days of empiric IV ceftriaxone Her urine cx has grown no bacteria. This may have been from having a partially treated UTI from being on recent oral antibiotics however I stopped the empiric IV ceftriaxone as she had recevd 3 days (7) Hypernatremia Due to dehydration from not taking p.o. food or liquids for several days Patient was started on D5W, her sodium has improved (all labs were reviewed). Plan: Will start decreasing iv fluids (8) SONJA BUN/creatinine 63/0.9 at presentation and has resolved as of 07/15. Plan: Cont plan as above - Current Meds Current Meds: Current Medications Generic Name Dose Route Start Last Admin Trade Name Freq PRN Reason Stop Dose Admin Levothyroxine Sodium 175 mcg 07/18/23 07:00 07/18/23 06:38 Levothyroxine 100 Mcg Vial IVP 175 mcg MoTh@0700 ANCA Administration Multivitamins/Minerals 1 tab 07/15/23 08:00 07/18/23 08:32 Multivitamin W/Minerals Tablet PO 1 tab DAILYWM ANCA Administration Pantoprazole Sodium 40 mg 07/15/23 21:00 07/18/23 09:32 Pantoprazole 40 Mg Vial IVP 40 mg BID ANCA Administration Sodium Chloride 10 ml 07/12/23 19:24 07/18/23 09:32 Sodium Chloride Flush 0.9% 10 Ml Syringe IVP 10 ml PRN PRN Administration NEEDED PER PROVIDER ORDERS Sodium Chloride 10 ml 07/13/23 01:00 07/18/23 08:32 Sodium Chloride Flush 0.9% 10 Ml Syringe IVP Not Given 0100,0900,1700 ANCA - Lab Result Fish Bone Diagrams: 07/16/23 05:21 07/17/23 05:09 - Additional Planning My Orders: My Active Orders 07/18/23 Evaluate and Treat OT [OT] Routine Evaluate and Treat PT [PT] Routine 07/18/23 07:00 Levothyroxine Inj [Synthroid Inj] 175 mcg IVP MoTh@0700 07/18/23 10:31 Dextrose 5% [D5w] 1,000 ml IV 40 mls/hr Subjective - Subjective Patient Reports: Resting Comfortably, No Complaints Objective Vital Signs: Vital Signs - 24 hr 07/17/23 07/17/23 07/18/23 17:39 23:39 07:59 Temperature 37.4 C 36.4 C L 36.3 C L Heart Rate [ 73 70 69 Brachial] Respiratory 16 17 18 Rate Blood Pressure 115/57 L 102/46 L 97/54 L [Right Brachial artery] O2 Saturation 99 95 99 Oxygen O2 Source Room air I&O (Last 24 Hrs): Intake and Output Totals x24h 07/16/23 07/17/23 07/18/23 23:59 23:59 23:59 Intake Total 1400 2286.50 1572.5 Output Total 2400 1225 1600 Balance -1000 1061.50 -27.5 General: Alert, No acute distress, Other (Cachectic, dark circles under her eyes) HEENT: EOMI, Mucous membr. moist/pink Neck: Supple, No JVD Neuro: Alert, Disoriented, Non Focal Cardiovascular: Regular rate, No murmurs Respiratory: No respiratory distress, Breath sounds nml Abdomen: Normal bowel sounds, Soft, No tenderness Extremities: No clubbing, No edema, No tenderness/swelling - Results Results: Laboratory Results WBC 6.1 x10^3/uL (4.8-10.8) 07/16/23 05:21 RBC 3.66 10^6/uL (4.20-5.40) L 07/16/23 05:21 Hgb 11.0 g/dL (12.0-16.0) L 07/16/23 05:21 Hct 33.6 % (37.0-47.0) L 07/16/23 05:21 MCV 91.8 fL (81.0-99.0) 07/16/23 05:21 MCH 30.1 pg (27.0-31.0) 07/16/23 05:21 MCHC 32.7 g/dL (32.0-36.0) 07/16/23 05:21 RDW 16.2 % (12.0-15.0) H 07/16/23 05:21 Plt Count 150 10^3/uL (130-450) 07/16/23 05:21 MPV 12.7 fL (7.9-10.8) H 07/16/23 05:21 Neut # (Auto) 3.9 10^3/uL (1.5-6.6) 07/16/23 05:21 Lymph # (Auto) 1.3 10^3/uL (1.5-3.5) L 07/16/23 05:21 [place] # (Auto) 0.5 10^3/uL (0.0-1.0) 07/16/23 05:21 Eos # (Auto) 0.3 10^3/uL (0.0-0.7) 07/16/23 05:21 Baso # (Auto) 0.0 10^3/uL (0.0-0.1) 07/16/23 05:21 Absolute Nucleated RBC 0.00 x10^3/uL 07/16/23 05:21 Nucleated RBC % 0.0 /100WBC 07/16/23 05:21 VBG pH 7.444 (7.31-7.41) H 07/13/23 17:25 Ionized Calcium 1.10 mmol/L (1.15-1.33) L 07/13/23 17:25 Sodium 140 mmol/L (135-145) 07/17/23 05:09 Potassium 3.1 mmol/L (3.5-4.5) L 07/17/23 05:09 Chloride 106 mmol/L (101-111) 07/17/23 05:09 Carbon Dioxide 30 mmol/L (21-32) 07/17/23 05:09 Anion Gap 4.0 (6-13) L 07/17/23 05:09 BUN 7 mg/dL (6-20) 07/17/23 05:09 Creatinine 0.6 mg/dL (0.6-1.3) 07/17/23 05:09 Estimated GFR (MDRD) 97 (>89) 07/17/23 05:09 Glucose 119 mg/dL (74-104) H 07/17/23 05:09 Calcium 8.4 mg/dL (8.5-10.3) L 07/17/23 05:09 Phosphorus 2.4 mg/dL (2.5-5.0) L 07/18/23 06:15 Magnesium 1.9 mg/dL (1.7-2.3) 07/18/23 06:15 Total Bilirubin 0.6 mg/dL (0.2-1.0) 07/12/23 13:53 AST 20 IU/L (10-42) 07/12/23 13:53 ALT 16 IU/L (10-60) 07/12/23 13:53 Alkaline Phosphatase 66 IU/L (42-121) 07/12/23 13:53 Total Protein 6.8 g/dL (6.4-8.9) 07/12/23 13:53 Albumin 4.0 g/dL (3.2-5.5) 07/12/23 13:53 Globulin 2.8 g/dL (2.1-4.2) 07/12/23 13:53 Albumin/Globulin Ratio 1.4 (1.0-2.2) 07/12/23 13:53 Lipase 20 U/L (11-82) 07/12/23 13:53 TSH 7.75 uIU/mL (0.34-5.60) H 07/16/23 05:21 Urine Color DARK YELLOW 07/12/23 13:09 Urine Clarity CLEAR (CLEAR) 07/12/23 13:09 Urine pH 5.5 PH (5.0-7.5) 07/12/23 13:09 Ur Specific [place] 1.020 (1.002-1.030) 07/12/23 13:09 Urine Protein 30 mg/dL (NEGATIVE) H 07/12/23 13:09 Urine Glucose (UA) NEGATIVE mg/dL (NEGATIVE) 07/12/23 13:09 Urine Ketones TRACE mg/dL (NEGATIVE) 07/12/23 13:09 Urine Occult Blood TRACE-INTA (NEGATIVE) 07/12/23 13:09 Urine Nitrite POSITIVE (NEGATIVE) H 07/12/23 13:09 Urine Bilirubin NEGATIVE (NEGATIVE) 07/12/23 13:09 Urine Urobilinogen 0.2 (NORMAL) E.U./dL (NORMAL) 07/12/23 13:09 Ur Leukocyte Esterase SMALL (NEGATIVE) H 07/12/23 13:09 Urine RBC 0-5 /HPF (0-5) 07/12/23 13:09 Urine WBC >25 /HPF (0-5) H 07/12/23 13:09 Urine WBC Clumps PRESENT 07/12/23 13:09 Ur Squamous Epith Cells NONE SEEN (<= Few) 07/12/23 13:09 Urine Bacteria Moderate /HPF (None Seen) H 07/12/23 13:09 Ur Microscopic Review INDICATED 07/12/23 13:09 Urine Culture Comments INDICATED 07/12/23 13:09 Nasal Screen MRSA (PCR) NEGATIVE (NEGATIVE) 07/13/23 04:46 Blood Type A POSITIVE 07/12/23 20:07 Blood Type Recheck A POSITIVE 07/12/23 13:53 Antibody Screen NEGATIVE 07/12/23 20:07
[2023-07-19] MEDS: SODIUM CHLORIDE FLUSH 0.9% 10 ML SYRINGE IVP SCH ×3 (00:04→19:32)
[2023-07-19 07:44] LABS: CALCIUM 8.5 mg/dL (8.5-10.3); CREATININE 0.6 mg/dL (0.6-1.3); MAGNESIUM 1.9 mg/dL (1.7-2.3); PHOSPHORUS 2.3 mg/dL (2.5-5.0)
[2023-07-19 07:50] LABS: BASOPHILS % (AUTO) 0.4 %; EOSINOPHILS # (AUTO) 0.2 10^3/uL (0.0-0.7); EOSINOPHILS % (AUTO) 4.5 %; HCT - HEMATOCRIT 30.6 % (37.0-47.0); HGB - HEMOGLOBIN 10.2 g/dL (12.0-16.0); LYMPHOCYTES # (AUTO) 1.1 10^3/uL (1.5-3.5); LYMPHOCYTES % (AUTO) 20.1 %; MEAN CORPUSCULAR HEMOGLOBIN 30.4 pg (27.0-31.0); MEAN CORPUSCULAR HGB CONC 33.3 g/dL (32.0-36.0); MEAN CORPUSCULAR VOLUME 91.1 fL (81.0-99.0); MEAN PLATELET VOLUME 12.3 fL (7.9-10.8); MONOCYTES # (AUTO) 0.6 10^3/uL (0.0-1.0); NEUTROPHILS # (AUTO) 3.3 10^3/uL (1.5-6.6); NEUTROPHILS % (AUTO) 62.4 %; PLT - PLATELET COUNT 152 10^3/uL (130-450); RED BLOOD COUNT 3.36 10^6/uL (4.20-5.40); RED CELL DISTRIBUTION WIDTH 16.3 % (12.0-15.0); WHITE BLOOD COUNT 5.3 x10^3/uL (4.8-10.8)
[2023-07-19] MEDS: PANTOPRAZOLE 40 MG VIAL IVP SCH ×2 (08:57→21:55)
[2023-07-19] MEDS: MULTIVITAMIN W/MINERALS TABLET PO SCH (08:57)
[2023-07-19] MEDS: POTASSIUM CHLOR 10 MEQ/100 ML 10 MEQ/100 ML BAG IV SCH ×4 (09:36→18:07)
--- NOTE | 2023-07-19 15:59 | Discharge Plan ---
Discharge Plan for SNF / [facility] - Discharge Plan And Transition Orders Problem Reviewed?: Yes Allergies and Adverse Reactions: Allergies Allergy/AdvReac Type Severity Reaction Status Date / Time No Known Drug Allergies Allergy Verified 07/12/23 13:03 Health Concerns: This is a 78-year-old female with a history of dementia and has 24/7 caregivers with a court appointed guardian. She usually walks, and eats with self-feeding. However for 2 to 3 days presented with less and less mobility, less and less consciousness, and no eating. 2 days of melena. She presented to the emergency room with GI bleeding, rectal bleeding, hyponatremia hypokalemia and a UTI. Serial hemoglobins were ordered, antibiotics were ordered, and we contacted the guardian for permission regarding work-up of her lower GI bleed. Advance care planning conversation was held where it was decided due to the age and quality of life of this patient, she is not a candidate for EGD, colonoscopy or surgical intervention. Howevere, she can receive IV fluids and IV antibiotics to see if she can recover from infection. Patient has been hydrated, and was started to be feed. But she wouldn't eat or spit out food in her mouth. We then found out that she had a "special diet" of mixed nuts, sausage patties, chicken nuggets, eggo waffles, red apples, peas and warm water with every meal. Caregivers have been present at the bedside to help us feed her and encouraged her to work with PT and OT. Her guardian has been updated and feels that the patient could recover somewhat and is encouraged just to keep offering food and physical/occupational therapy to resume her baseline of ambulation and self feeding. Guardian feels the patient could benefit from custodial facility care and we are now transitioning the patient. We have contacted [facility] and they are able to take the patient regardless of care level including comfort care or hospice. Plan of Treatment: Continued attempts with PT and OT, continue to feed the patient. Guardian is aware of situation and would like to move forward with basic treatment and encouragement. But no EGD, colonoscopy, IV fluids, and does agree to IV antibiotics. Patient is DO NOT RESUSCITATE. Care Goals: To stabilize deterioration and hope that patient will begin to eat again and cooperate for physical and Occupational Therapy. Assessment: Patient is unable to participate in management of her care. Guardian is Iris through [employer] [facility]. - SNF / [facility] Transition Orders Admit to (Facility): [facility] Discharge Diagnosis: 1. Acute blood loss anemia due to GI bleed 2. Lower GI bleed unknown source 3. History of diverticulosis 4. Severe protein calorie malnutrition 5. Dementia, unspecified without behavioral disorder 6. Hypokalemia 7. UTI 8. Hypernatremia 9. Acute kidney injury 10. Failure to thrive in an adult Medicare Certification Statement: I certify that [facility] custodial care is medically necessary on a continuing basis for any of the conditions for which she/he is receiving care during hospitalization. Notify PCP of admission and forward orders to primary provider for signature. Weight on admission and: Weekly Other Notification Orders: Call PCP immediately if patient develops dyspnea, chest pain/tightness or edema. House Bowel Program: Yes Additional Bowel Program Orders: If no BM after 2 days, nurse may give M.O.M. 30ml PO PRN and/or ducolax Supp 1 ND and/or CUONG 250mg P.O., and/or senna 1-2 tabs PO. On day 3 nurse may give repeat above order until residents constipation is resolved. Annual Influenza Vaccine (between Jun 10 and January 07): Yes Two-step PPD per [facility] [id number] or approved exception documents: Yes Medication Orders: PLEASE REFER TO THE DISCHARGE MEDICATION LIST. Insulin Orders?: No - Diet Type: Geriatric Texture: Regular Liquids: Thin May have monthly special meal: Yes (See description of diet in health concerns) - Therapies | Activity Therapy: Evaluation | Treat if indicated: Speech, PT, OT Rehabilitation Potential: Maximize functional status Activity: Activity as Tolerated Weight Bearing: Full Weight Assistance Devices: Wheelchair, Walker
--- NOTE | 2023-07-19 16:17 | PROVIDER PROGRESS NOTE ---
Subjective - Prog Note Date Prog Note Date: 07/19/23 Prog Note Time: 16:15 - Subjective Subjective: No complaints. This patient is demented and not very verbal. She is laying comfortably in bed. Her caregiver is at the bedside. Current Medications - Current Medications Current Medications: Active Medications Bisacodyl (Bisacodyl 10 Mg Supp) 10 mg MA DAILY PRN PRN Reason: Constipation Levothyroxine Sodium (Levothyroxine 100 Mcg Vial) 175 mcg IVP MoTh@0700 [facility] Last Admin: 07/18/23 06:38 Dose: 175 mcg Multivitamins/Minerals (Multivitamin W/Minerals Tablet) 1 tab PO DAILYWM [facility] Last Admin: 07/19/23 08:57 Dose: 1 tab Ondansetron HCl (Ondansetron 4 Mg/2 Ml Vial) 4 mg IVP Q6HR PRN PRN Reason: Nausea / Vomiting Pantoprazole Sodium (Pantoprazole 40 Mg Vial) 40 mg IVP BID [facility] Last Admin: 07/19/23 08:57 Dose: 40 mg Sodium Chloride (Sodium Chloride Flush 0.9% 10 Ml Syringe) 10 ml IVP PRN PRN PRN Reason: NEEDED PER PROVIDER ORDERS Last Admin: 07/18/23 09:32 Dose: 10 ml Sodium Chloride (Sodium Chloride Flush 0.9% 10 Ml Syringe) 10 ml IVP 0100,0900,1700 [facility] Last Admin: 07/19/23 08:57 Dose: 10 ml Levothyroxine [Synthroid] 100 mcg PO QDAC 07/04/23 Melatonin 3 mg PO DAILY 07/04/23 Senna [Senokot] 8.6 mg PO DAILY 07/04/23 Sertraline [Zoloft] 25 mg PO DAILY 07/04/23 traZODone [Desyrel] 50 mg PO HS 07/04/23 Multivit-Min/Iron/FA/Vit K/Lut [Centrum Women 50 Plus Minis Tb] 1 each PO DAILY 07/13/23 Objective - Vital Signs/Intake & Output Reviewed Vital Signs: Yes Vital Signs: Vital Signs x48h Temp Pulse Resp BP Pulse Ox 07/19/23 09:55 36.5 C 87 18 107/62 94 Intake & Output: Intake & Output 07/16/23 07/17/23 07/18/23 07/19/23 23:59 23:59 23:59 23:59 Intake Total 1400 2286.50 2312.0 607.083 Output Total 2400 1225 2200 600 Balance -1000 1061.50 112.0 7.083 - Objective General Appearance: positive: No acute distress (Body odor evident), Other (Sleeping, opens her eyes To my request, and answers yes no but no meaningful conversation) Eyes Bilateral: positive: PERRL, EOMI ENT: positive: Dry mucous membranes Neck: positive: No JVD. negative: Stiff neck Respiratory: positive: No respiratory distress. negative: Wheezes, Rales, Rhonchi Cardiovascular: positive: Regular rate & rhythm Abdomen: positive: Other (Hypoactive, nontender, without organomegaly). negative: Guarding, Rebound Skin: positive: Warm, Dry, Pallor Extremities: positive: Full ROM, No pedal edema Neurologic/Psychiatric: positive: CN's nml (2-12), Motor nml (She does move all extremities spontaneously, with purpose if I put something in her hands, no focal deficit but not very strong overall), Disoriented to person, Disoriented to place, Disoriented to time - Lab Results Fish Bones: 07/19/23 07:20 07/19/23 07:20 Other Labs: Lab Results x24hrs 07/19/23 07/19/23 Range/Units 07:20 07:20 WBC 5.3 (4.8-10.8) x10^3/uL RBC 3.36 L (4.20-5.40) 10^6/uL Hgb 10.2 L (12.0-16.0) g/dL Hct 30.6 L (37.0-47.0) % MCV 91.1 (81.0-99.0) fL MCH 30.4 (27.0-31.0) pg MCHC 33.3 (32.0-36.0) g/dL RDW 16.3 H (12.0-15.0) % Plt Count 152 (130-450) 10^3/uL MPV 12.3 H (7.9-10.8) fL Neut # (Auto) 3.3 (1.5-6.6) 10^3/uL Lymph # (Auto) 1.1 L (1.5-3.5) 10^3/uL [place] # (Auto) 0.6 (0.0-1.0) 10^3/uL Eos # (Auto) 0.2 (0.0-0.7) 10^3/uL Baso # (Auto) 0.0 (0.0-0.1) 10^3/uL Absolute Nucleated RBC 0.00 x10^3/uL Nucleated RBC % 0.0 /100WBC Sodium 138 (135-145) mmol/L Potassium 3.0 L (3.5-4.5) mmol/L Chloride 104 (101-111) mmol/L Carbon Dioxide 29 (21-32) mmol/L Anion Gap 5.0 L (6-13) BUN 11 (6-20) mg/dL Creatinine 0.6 (0.6-1.3) mg/dL Estimated GFR (MDRD) 97 (>89) Glucose 110 H (74-104) mg/dL Calcium 8.5 (8.5-10.3) mg/dL Phosphorus 2.3 L (2.5-5.0) mg/dL Magnesium 1.9 (1.7-2.3) mg/dL ABX Reporting Has patient been on IV antibiotics over the past 48 hours?: Yes Assessment/Plan - Problem List (1) Metabolic encephalopathy Impression: This lady usually ambulates in her own home, and is prompted to eat or bathe by her caregivers. But there was a sudden downward turn a few days prior to admission. She became less responsive, was refusing to eat. And began having blood on her underwear and toilet bowl with shortness of breath. It was unclear if this was vaginal or rectal bleeding. She was being treated for a UTI with Keflex. In the ER she was alert, requesting her cell phone. She was confused. Vaginal exam was negative for bleeding, she had dark green stool in the rectal vault. She was also found to be hyper natremic with a sodium of 157, guaiac positive on stool check, elevated white cell count, and acute cystitis on UA. Her encephalopathy has improved but she is still very sleepy. She has responded to IV fluids for hydration, IV antibiotics for UTI and expectant management of possible lower GI bleed. It is clear she is not stable for discharge to home. Guardian has requested transfer to shelter facility Orders for shelter facility written today for discharge tomorrow (2) UTI (urinary tract infection) Impression: Resolved. A UTI in this demented elderly female was most likely the cause of her sudden downward deterioration. The UTI resulted in decreased p.o. intake, the decreased p.o. intake resulted in hypernatremia, acute kidney injury and metabolic encephalopathy Urine culture from this admission on July 12 was negative for growth. However previous urine culture on July 04 had E. coli. Patient was on Keflex for that since July 04. As such by July 12 she would received 8 to 9 days of antibiotics. While here she did receive ceftriaxone for 3 more days until July 15. Qualifiers: Urinary tract infection type: acute cystitis (3) GIB (gastrointestinal bleeding) Impression: Hemoglobin is usually normal for this patient. She was 13.4 on admission. 12.9 in June 2023, 12.8 in May 2023, and 13.9 in June 2014. With subsequent hydration, she is most likely diluted and hemoglobin nadired at 9.7 on July 14. Patient is remained stable at above 10 g since July 14. To day is July 19. She is not a candidate for EGD or colonoscopy per guardian. No new orders for this today Qualifiers: GI bleed type/associated pathology: melena Qualified Code(s): K92.1 - Melena (4) Dementia Impression: No behavioral disturbance. At home the patient is on trazodone, Zoloft. Those will be continued upon transfer to the shelter facility. Discharge orders have been written today for tomorrow. Qualifiers: Dementia type: unspecified type Dementia severity: severe Dementia behavioral or psychological symptom: unspecified whether behavioral, psychotic, or mood disturbance or anxiety Qualified Code(s): F03.C0 - Unspecified dementia, severe, without behavioral disturbance, psychotic disturbance, mood disturbance, and anxiety (5) Severe protein-calorie malnutrition Impression: Patient has nutritional intake less than 50% for 2 weeks or more. Weight loss of 8% in 1 month. She is dropped from 72 kg to 66 kg in 1 month. Plan: Diet has been changed to her usual diet from home. She from a few bites and up to 75% of her food yesterday. Today she is eating 50 to 75% of her food. This is a definite improvement. Prior to July 18 this patient was eating nothing or may be a bite or 2. Plan: Continue to offer food. Maybe she can get offered Ensure at the shelter facility. But she is definitely responding to the change in her diet at the request of the guardian (6) Dehydration Impression: Appears to be resolved. On admission BUN was 68, she is now 11. Creatinine was 1.0 and she is 0.6 today. (7) Hypernatremia Impression: Resolved. (8) Hypokalemia Impression: In spite of good supplementation, she continues to be hypokalemic. Previous hospitalist note mentioned that K riders would be ordered. Unfortunately they were not. I will be writing K riders this morning. Recheck this afternoon to make sure she is adequately supplemented before transfer to shelter facility. (9) FTT (failure to thrive) in adult Impression: Rectal bleeding, loss of weight, dehydration, acute kidney injury and severe protein calorie malnutrition. She went from being mobile to him mobile in less than a week. I am hoping that with adequate food and hydration and her improvement in her diet she may regain some of her functional mobility and functional status which is quite poor at this time.
[2023-07-19] MEDS ORDERED: POTASSIUM CHLORIDE 20 MEQ TABLET PO ONE (18:16)
[2023-07-20] MEDS: SODIUM CHLORIDE FLUSH 0.9% 10 ML SYRINGE IVP SCH (00:35)
[2023-07-20] MEDS: MULTIVITAMIN W/MINERALS TABLET PO SCH (07:49)
--- NOTE | 2023-07-20 07:57 | DISCHARGE SUMMARY ---
"Discharge Summary Admit Date: 07/12/23 Discharge Date: 07/20/23 Discharging Provider: Annemarie Galvez MD Primary Care Provider: Marce Mccoy Code Status: Do Not Attempt Resuscitation Condition at Discharge: Fair Discharge Disposition: SNF DC/Xfer - DIAGNOSES Discharge Diagnoses with Status of Each Condition: 1. Acute blood loss anemia due to GI bleed 2. Lower GI bleed unknown source 3. History of diverticulosis 4. Severe protein calorie malnutrition 5. Dementia, unspecified without behavioral disorder 6. Hypokalemia 7. UTI 8. Hypernatremia 9. Acute kidney injury Due to dehydration 10. Failure to thrive in an adult - HPI History of Present Illness: 78 y old female with PMH dementia, hypothyroidism BIBA due to not eating or drinking for last few days. Most is history is from the caregiver. As per caregiver, pt was not taking her meds or eating or drinking for last few days. They noticed blood per rectum while cleaning her yesterday and gain this morning.. On presentaion, pt was afberile Labs showed WBC 12.3, NA 159, hypokalemia, UTI, As per Isabel Ornelas, pt was guiaiac positive In ER, pt was given Normal saline, IV protonix and abx Pt is admitted due to GI bleeding, hypernatremia, dehydartion, hypokalemia and uti History - Past Medical History Cardiovascular: reports: Hypertension Neuro: reports: Dementia Endocrine/Autoimmune: reports: HyPOthyroidism MRSA Hx?: No - CONSULTS | PROCEDURES Procedures: Chest x-ray was without acute cardiopulmonary process. Stool occult blood was positive Urine culture was without gross - HOSPITAL COURSE Hospital Course: Greater than 30 minutes spent coordinating discharge. Patient is discharged to [place] [facility] This document was made in part using voice recognition software. While efforts are made to proofread this document, sound alike and grammatical errors may occur. This abrahan lady usually ambulates in her own home and can be prompted to eat and be prompted to bathe by her caregivers. But there was a sudden downturn in this and she was not eating, getting out of bed, and becoming less responsive. She was refusing to eat. She began having blood in her underwear and toilet bowl with shortness of breath. She had already been treated for a UTI with Keflex. When she came to the emergency room she was confused, requesting her cell phone, vaginal exam was negative but she had dark green occult blood positive stool in her rectal vault. Her encephalopathy gradually improved when a new UTI was identified and treated, she received IV fluids. And her sodium which was hyponatremic, eventually normalized. She responded very nicely to D5W. Urine was abnormal and treated as a UTI for 3 days. Hemoglobin is usually normal for this patient. She was 13.4 on admission. With subsequent hydration hemoglobin nadired at 9.7 and then came back up to 10. She is not a candidate for EGD or colonoscopy per her guardian. We discussed a feeding tube because this lady would intermittently eat. And she had already lost quite a bit of weight. We then were informed that she has a special diet of mixed nuts, sausage patties, chicken nuggets, egg waffles and cut red apples, peas and only warm water. We offered her some of this and sometimes she ate, sometimes she did not. At the time of discharge she was 10.2. She was felt to have severe protein calorie malnutrition and failure to thrive. She had less than 50% nutritional intake for 2 weeks and a weight loss of 8% in 1 month. She dropped from 72 kg to 66 kg. Her guardian still felt that this patient would benefit from rehab and treatment. She did not feel that the patient was at end-of-life. As such the patient was transferred to a residential facility for rehab. At discharge temperature was 36.4. Heart rate 79. Blood pressure 105/49. Respirations 16. 98% on room air. She is 5 foot 5 inches tall, 66 kg. She is confused. She is not oriented to person place or time. Physical therapy found her to be lethargic, flat affect. Decreased attention span. Hypoverbal. There is a lot of barriers to learning because of cognitive verbal and cognitive written deficits. When they tried to get her up from a supine position she resisted. Required moderate assist to transfer her to a sitting position and to a standing position. She did not want to walk with. She was unable to follow cueing. While she was here, she did have her caregivers that took care of her at home here in the hospital. Even with their cueing it was difficult to get her to work with PT. Lungs were clear. Regular rate and rhythm. Her right hand IV was infiltrated and a little tender and red. But no fever or lymphangitic streaking. Her last BM was July 19. Cota catheter was in place. And I left an order for it to be discontinued at the group home if they felt it was appropriate. - ALLERGIES Allergies/Adverse Reactions: Allergies Allergy/AdvReac Type Severity Reaction Status Date / Time No Known Drug Allergies Allergy Verified 07/12/23 13:03 - MEDICATIONS Home Medications: Ambulatory Orders Medication Instructions Recorded Confirmed Bisacodyl Supp [Dulcolax Supp] 10 mg NH DAILY PRN #20 supp 07/20/23 Levothyroxine [Synthroid] 100 mcg PO QDAC #30 tab 07/20/23 Melatonin 3 mg PO DAILY #30 tab 07/20/23 Multivit-Min/Iron/FA/Vit K/Lut 1 each PO DAILY #30 tab 07/20/23 [Centrum Women 50 Plus Minis Tb] Potassium Chloride [Klor-Con] 20 meq PO DAILY 5 Days #5 packet 07/20/23 Senna [Senokot] 8.6 mg PO DAILY #30 tab 07/20/23 Sertraline [Zoloft] 25 mg PO DAILY #30 tab 07/20/23 traZODone [Desyrel] 50 mg PO HS #30 tab 07/20/23 - LABS Result Diagrams: 07/19/23 07:20 07/19/23 19:56"
[2023-07-20 08:22] VITALS: BP 105/49; O2SAT 98
== END 2023-07-20 08:35 | DRG 377 ==
LOC: EDUNIT# → ED 12:44 → MS2 19:24 → ICU 20:07 → MS2 07-14 08:43
PROVIDERS: ADMIT Internal Medicine; ATTEND Specialist
DX: N30.00 Acute cystitis without hematuria (principal); K92.2 Gastrointestinal hemorrhage, unspecified; E43 Unspecified severe protein-calorie malnutrition; D62 Acute posthemorrhagic anemia; E87.0 Hyperosmolality and hypernatremia; F03.C0 Unspecified dementia, severe, without behavioral disturbance, psychotic disturbance, mood disturbance, and anxiety; N17.9 Acute kidney failure, unspecified; N39.0 Urinary tract infection, site not specified; Z68.24 Body mass index [BMI] 24.0-24.9, adult; E86.0 Dehydration; E87.6 Hypokalemia; R19.5 Other fecal abnormalities; E03.9 Hypothyroidism, unspecified; F03.90 Unspecified dementia, unspecified severity, without behavioral disturbance, psychotic disturbance, mood disturbance, and anxiety; R62.7 Adult failure to thrive; Z66 Do not resuscitate; R41.82 Altered mental status, unspecified; Z87.19 Personal history of other diseases of the digestive system; I10 Essential (primary) hypertension
CPT/HCPCS: 36415; 71045; 80048; 80053; 81001; 82272; 82330; 83690; 83735; 84100; 84132; 84295; 84443; 85018; 85025; 86850; 86900; 86901; 87086; 87150; 96361; 96374; 97162; 97166; 99285; A9270; 81003